=== PATIENT | male | born 1945 | race Caucasian/White ===

== ENCOUNTER 2019-08-17 23:17 | Observation (INO) ==
[2019-08-17] MEDS ORDERED: PIPERACILLIN/TAZOBACTAM 4.5 GM/120 ML BAG IV ONE (23:39)
[2019-08-17] MEDS ORDERED: PIPERACILL/TAZOBAC CONSULT ACTIVE PRN (23:39)
[2019-08-17] MEDS ORDERED: ONDANSETRON INJ 2 MG/ML 2 ML VIAL IV STA (23:40)
[2019-08-17] MEDS ORDERED: fentaNYL citrate 100 MCG/2 ML VIAL IV STA (23:40)
[2019-08-18 00:02] LABS: Basophils # (auto) 0.02 K/uL (0-0.2); Basophils % (auto) 0.2 %; Eosinophils # (auto) 0.29 K/uL (0-0.5); Eosinophils % (auto) 2.4 %; Hemoglobin 10.7 g/dL (14.0-18.0); Immature Granulocytes # (auto) 0.05 K/uL (0.00-0.02); Immature Granulocytes % (auto) 0.4 %; Lymphocytes # (auto) 1.41 K/uL (1.2-3.4); Lymphocytes % (auto) 11.9 %; Mean Corpuscular Hemoglobin 28.5 pg (25-34); Mean Corpuscular Hgb Conc 31.5 g/dL (32-36); Mean Corpuscular Volume 90.4 fL (80-100); Mean Platelet Volume 10.2 fL (7.4-10.4); Monocytes % (auto) 7.6 %; Neutrophils % (auto) 77.5 %; Platelet Count 134 K/uL (130-400); RDW Coefficient of Variation 14.9 % (11.5-14.5); RDW Standard Deviation 48.8 fL (36.4-46.3); Red Blood Count 3.76 M/uL (4.7-6.1); White Blood Count 11.87 K/uL (4.8-10.8)
[2019-08-18 00:18] LABS: Albumin Level 3.1 gm/dl (3.4-5.0); BUN Creatinine Ratio 18.1 (10-20); Calcium 8.1 mg/dl (8.5-10.1); Est GFR (African American) 22.9; Est GFR (Non-African American) 19.7; Potassium 4.7 mmol/L (3.5-5.1)
[2019-08-18 00:21] LABS: Albumin Globulin Ratio 0.9 (0.9-2); Bilirubin,Total 0.4 mg/dl (0.2-1); Globulin 3.4 gm/dl (2.5-4.0); Total Protein 6.5 gm/dl (6.4-8.2)
[2019-08-18] MEDS ORDERED: HYDROmorphone INJ 0.5 MG/0.5 ML SYR IV STA (01:09)
[2019-08-18 01:42] LABS: Appearance Urine Cloudy (Clear); Bacteria Urine Automated Negative (Negative); Bilirubin Urine Negative (Negative); Blood Urine 3+ (Negative); Color Urine Yellow; Epithelial Cell Urine Auto >30 /lpf (0-5); Glucose Urine UA Negative (Negative); Ketones Urine Negative (Negative); Leukocyte Esterase Urine Trace (Negative); Nitrite Urine Negative (Negative); Protein Urine 2+ (Negative); RBC Urine Automated >30 /hpf (0-4); Specific Gravity Urine 1.013 (1.000-1.030); Urobilinogen Urine Negative (Negative)
[2019-08-18 01:57] LABS: Amorphous Sediment Urine Present (None Prsent)
[2019-08-18 01:58] LABS: Cast Urine Automated 0 /lpf (0-5); Mucus Urine Present (None Prsent)
[2019-08-18] MEDS ORDERED: HydrALAZINE HCL 20 MG/ML VIAL IV STA (02:08)
[2019-08-18] MEDS: SODIUM CHLORIDE 0.9% 1000ML 1,000 ML IV SCH ×3 (02:35→22:38)
--- NOTE | 2019-08-18 03:49 | Emergency Department Note ---
History of Present Illness General Chief complaint: Urinary Symptoms Stated complaint: BLADDER SURGERY TODAY, WEAK, UNABLE TO URINATE Source: patient and family Mode of arrival: ambulatory Limitations: no limitations History of Present Illness Provider complaint: weak, urinary retention, bladder tumor resection today Onset (ago): day(s) 1 Maximum Pain Intensity: 6 This pt is a 73 yo male who presents to the ED with c/o weakness, abd pain, urinary difficulties, post bladder tumor resection today. states he was able to ambulate with minimal assist out of the surgery center. This evening the patient began to complain of some lower abdominal discomfort and became weak. He required a 2 person assist to ambulate to the bathroom. His states he was not able to pass urine. He has not urinated since leaving the surgery center. There has been no significant fever, headache, chest pain or shortness of breath. There is no vomiting or diarrhea. Patient's states he did do something similar several years ago and required several day stay at [facility]. Home Medications Home Medications Medication Instructions Recorded Confirmed Type escitalopram oxalate 20 mg tablet 20 mg PO QAM tab 10/25/18 08/18/19 History levothyroxine 100 mcg tablet 100 mcg PO QAM tab 10/25/18 08/18/19 History simvastatin 80 mg tablet 80 mg PO HS tab 10/25/18 08/18/19 History furosemide 40 mg tablet 40 mg PO DAILY tab 02/03/19 08/18/19 History PreserVision AREDS-2 1 tab PO BID 02/17/19 08/18/19 History aspirin [Aspir-81] 81 mg PO QAM 02/17/19 08/18/19 History cholecalciferol (vitamin D3) 2,000 unit PO QAM 02/17/19 08/18/19 History [Vitamin D3] metoprolol tartrate 25 mg tablet 25 mg PO BID 04/11/19 08/18/19 History hydralazine 10 mg PO TID 06/28/19 08/18/19 History multivitamin 1 tab PO DAILYBD 06/28/19 08/18/19 History nitroglycerin [Nitrolingual] See Rx Instructions .ROUTE 06/28/19 08/18/19 History .COMPLEX PRN gabapentin 100 mg capsule 100 mg PO BID 30 Days #60 cap 07/21/19 08/18/19 Rx ciprofloxacin HCl [Cipro] 500 mg PO Q12H #10 tab 08/17/19 08/18/19 Rx oxycodone-acetaminophen [Percocet] 1 tab PO Q8H PRN #7 tab 08/17/19 08/18/19 Rx amlodipine 5 mg PO DAILY 08/18/19 08/18/19 History Allergies Allergy/AdvReac Type Severity Reaction Status Date / Time No Known Allergies Allergy Verified 08/17/19 10:21 Past Med/Surg History Medical History Bladder cancer 03/02 CAD (coronary artery disease) s/p stents x4 total- (1995, 2009); CABG x 5 (10/20/2018) Dyslipidemia Essential tremor Essential tremor vs secondary to chronic steroids per 03/2019 neuro note;on beta mckay and gabapentin [place] neurology [place] [place] Glaucoma History of blood transfusion s/p CABG 10/2018 History of stroke remote incidental finding on imaging (years ago) Hypertension Hypothyroidism Inguinal hernia Kidney disease stage III- "going into stage IV" per Dr. Nuno BURSN Macular degeneration b/l with eye injections by Dr. Gilbert Osteoarthritis Peripheral neuropathy likely idiopathic/age related per neurology ([facility] [place] Peripheral vascular disease Polymyalgia rheumatica on chronic steroids Rotator cuff tear right Sleep apnea non-compliant CPAP Transient ischemic attack (TIA) 05/16/19- testing was negative for stroke at [facility], pt had slurred speech and left facial droop which resolved after a few hours. said it was a TIA that did not show up on scan. Did request records- dx'ed and admitted to [facility] with weakness, mild left facial droop, and ambulatory dysfunction- MRI showed no acute process. No mention of TIA Umbilical hernia Surgical History History of appendectomy History of biopsy of bladder with BCG treatments History of cardiac cath x2- 4 stents total (1995, 2009) History of cataract surgery R&L History of cholecystectomy History of colonoscopy History of endoscopy History of open heart surgery CABG x 5 (10/2018) History of vascular surgery bilateral lower extremities Family History Brother Lymphoma Arthritis COPD (chronic obstructive pulmonary disease) Diabetes Kidney disease Coronary heart disease Heart disease Sister Arthritis Diabetes Parkinson disease Mother , age 85 with a brain tumor. Heart disease Diabetes Father , age 59 of an CA. 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 and A total of 10 systems reviewed and were otherwise negative Physical Exam Vital Signs Vital Signs - 24 hr 08/17/19 23:19 08/17/19 23:34 08/18/19 00:30 Temperature 37.7 C H Temperature Source Oral Pulse Rate 64 67 Pulse Rate [Apical] Pulse Rate from SpO2 Sensor 67 Respiratory Rate 20 15 Respiratory Effort / Characteristics Non-Labored Spontaneous Respiratory Depth Normal Blood Pressure 179/78 H 168/71 H Blood Pressure [Left Arm] Blood Pressure Mean 111 96 Blood Pressure Mean [Left Arm] Pulse Oximetry 96 98 Oxygen Delivery Method Room Air Room Air Oxygen Flow Rate Sepsis Action Taken by Nursing No Action Required 08/18/19 01:09 08/18/19 01:12 08/18/19 01:31 Temperature 37.1 C Temperature Source Oral Pulse Rate 66 67 Pulse Rate [Apical] 66 Pulse Rate from SpO2 Sensor 66 67 Respiratory Rate 18 16 14 Respiratory Effort / Characteristics Respiratory Depth Blood Pressure 185/88 H 171/111 H Blood Pressure [Left Arm] 185/88 H Blood Pressure Mean 138 127 Blood Pressure Mean [Left Arm] 120 Pulse Oximetry 99 100 91 Oxygen Delivery Method Room Air Oxygen Flow Rate Sepsis Action Taken by Nursing 08/18/19 02:00 08/18/19 02:30 08/18/19 02:31 Temperature 37.3 C Temperature Source Oral Pulse Rate 70 75 74 Pulse Rate [Apical] Pulse Rate from SpO2 Sensor 75 Respiratory Rate 16 17 14 Respiratory Effort / Characteristics Respiratory Depth Blood Pressure 190/79 H 167/92 H Blood Pressure [Left Arm] Blood Pressure Mean 97 122 Blood Pressure Mean [Left Arm] Pulse Oximetry 90 97 97 Oxygen Delivery Method Nasal Cannula Oxygen Flow Rate 2 Sepsis Action Taken by Nursing 08/18/19 03:00 08/18/19 03:30 08/18/19 04:00 Temperature Temperature Source Pulse Rate 76 76 77 Pulse Rate [Apical] Pulse Rate from SpO2 Sensor Respiratory Rate 18 18 16 Respiratory Effort / Characteristics Respiratory Depth Blood Pressure 178/66 H 169/69 H 170/73 H Blood Pressure [Left Arm] Blood Pressure Mean 96 105 96 Blood Pressure Mean [Left Arm] Pulse Oximetry 99 96 96 Oxygen Delivery Method Nasal Cannula Nasal Cannula Nasal Cannula Oxygen Flow Rate 2 2 2 Sepsis Action Taken by Nursing Vital signs reviewed. General: Chronically ill-appearing 73-year-old male, in no significant distress. HEENT: No scleral icterus, PERRLA, neck supple. Atraumatic. Cardiovascular: Regular rate and rhythm, no extra sounds. Pulmonary: Clear to auscultation bilaterally, normal work of breathing. Abdomen: Soft, nontender, nondistended, positive bowel sounds. Musculoskeletal: Atraumatic, no peripheral edema. Neurologic: Patient awake, appears to be in some discomfort. Speech is clear but patient is somnolent. Skin: Warm, dry, no rash Course Administered Medications Sodium Chloride (Nss 1000ml) 1,000 mls @ 100 mls/hr IV .Q10H GASTON Stop: 09/17/19 02:32 Last Infusion: 08/18/19 05:26 Dose: 100 mls/hr Documented by: [id number] Infusion: 08/18/19 05:25 Dose: 0 mls/hr Documented by: [id number] Infusion: 08/18/19 04:43 Dose: 0 mls/hr Documented by: [id number] Admin: 08/18/19 02:35 Dose: 100 mls/hr Documented by: [id number] Levothyroxine Sodium (Synthroid) 100 mcg PO DAILYBB GASTON Stop: 09/17/19 06:29 Last Admin: 08/18/19 05:45 Dose: Not Given Documented by: [id number] Discontinued Medications Fentanyl Citrate (Fentanyl Citrate) 50 mcg IV NOW STA Stop: 08/17/19 23:41 Last Admin: 08/18/19 00:07 Dose: 50 mcg Documented by: [id number] Hydralazine HCl (Hydralazine Hcl) 10 mg IV NOW STA Stop: 08/18/19 02:09 Last Admin: 08/18/19 02:11 Dose: 10 mg Documented by: [id number] Hydromorphone HCl (Dilaudid) 0.5 mg IV NOW STA Stop: 08/18/19 01:10 Last Admin: 08/18/19 01:15 Dose: 0.5 mg Documented by: [id number] Piperacillin Sod/Tazobactam Sod (Zosyn) 4.5 gm in 120 mls @ 240 mls/hr IV NOW ONE Stop: 08/18/19 00:08 Last Infusion: 08/18/19 00:38 Dose: 0 mls/hr Documented by: [id number] Admin: 08/18/19 00:07 Dose: 240 mls/hr Documented by: [id number] Ondansetron HCl (Zofran) 4 mg IV NOW STA Stop: 08/17/19 23:41 Last Admin: 08/18/19 00:07 Dose: 4 mg Documented by: [id number] Medical Decision Making Differential Diagnosis The differential diagnosis of this patient's presentation includes bladder perforation, bowel perforation, UTI, renal obstruction, dehydration, infectious etiology, acute coronary syndrome, medication intolerance Medical Records Attestation: I reviewed the patient's medical records. Home Medications Current Medication List: was personally reviewed by me Laboratory Data Attestation: I reviewed the patient's lab results. Result diagrams: 08/17/19 23:52 08/17/19 23:52 Lab Results 08/17/19 08/17/19 08/18/19 Range/Units 23:52 23:52 00:00 WBC 11.87 H (4.8-10.8) K/uL RBC 3.76 L (4.7-6.1) M/uL Hgb 10.7 L (14.0-18.0) g/dL Hct 34.0 L (42-52) % MCV 90.4 (80-100) fL MCH 28.5 (25-34) pg MCHC 31.5 L (32-36) g/dL RDW Std Deviation 48.8 H (36.4-46.3) fL RDW Coeff of Maria L 14.9 H (11.5-14.5) % Plt Count 134 (130-400) K/uL MPV 10.2 (7.4-10.4) fL Immature Gran % (Auto) 0.4 % Neut % (Auto) 77.5 % Lymph % (Auto) 11.9 % [place] % (Auto) 7.6 % Eos % (Auto) 2.4 % Baso % (Auto) 0.2 % Immature Gran # (Auto) 0.05 H (0.00-0.02) K/uL Neut # (Auto) 9.20 H (1.4-6.5) K/uL Lymph # (Auto) 1.41 (1.2-3.4) K/uL [place] # (Auto) 0.90 H (0.11-0.59) K/uL Eos # (Auto) 0.29 (0-0.5) K/uL Baso # (Auto) 0.02 (0-0.2) K/uL Sodium 138 (136-145) mmol/L Potassium 4.7 (3.5-5.1) mmol/L Chloride 107 (98-107) mmol/L Carbon Dioxide 22 (21-32) mmol/L Anion Gap 9.0 (3-11) BUN 53 H (7-18) mg/dl Creatinine 2.96 H (0.6-1.4) mg/dl Est Cr Clr Drug Dosing 21.0 ml/min Est GFR ( Amer) 22.9 Est GFR (Non-Af Amer) 19.7 BUN/Creatinine Ratio 18.1 (10-20) Glucose 92 (70-99) mg/dl Lactate 1.0 (0.4-2.0) mmol/L Calcium 8.1 L (8.5-10.1) mg/dl Total Bilirubin 0.4 (0.2-1) mg/dl AST 14 L (15-37) U/L ALT 22 (12-78) U/L Alkaline Phosphatase 52 (45-117) U/L Total Protein 6.5 (6.4-8.2) gm/dl Albumin 3.1 L (3.4-5.0) gm/dl Globulin 3.4 (2.5-4.0) gm/dl Albumin/Globulin Ratio 0.9 (0.9-2) Urine Color Urine Appearance (Clear) Urine pH (4.5-7.5) Ur Specific Reading (1.000-1.030) Urine Protein (Negative) Urine Glucose (UA) (Negative) Urine Ketones (Negative) Urine Blood (Negative) Urine Nitrite (Negative) Urine Bilirubin (Negative) Urine Urobilinogen (Negative) Ur Leukocyte Esterase (Negative) Urine WBC (Auto) (0-5) /hpf Urine RBC (Auto) (0-4) /hpf U Hyaline Cast (Auto) (0-5) /lpf U Epithel Cells (Auto) (0-5) /lpf Urine Bacteria (Auto) (Negative) Ur Renal Epithelial Cell Amorphous Sediment (None Prsent) Urine Mucus (None Prsent) 08/18/19 Range/Units 01:20 WBC (4.8-10.8) K/uL RBC (4.7-6.1) M/uL Hgb (14.0-18.0) g/dL Hct (42-52) % MCV (80-100) fL MCH (25-34) pg MCHC (32-36) g/dL RDW Std Deviation (36.4-46.3) fL RDW Coeff of Maria L (11.5-14.5) % Plt Count (130-400) K/uL MPV (7.4-10.4) fL Immature Gran % (Auto) % Neut % (Auto) % Lymph % (Auto) % [place] % (Auto) % Eos % (Auto) % Baso % (Auto) % Immature Gran # (Auto) (0.00-0.02) K/uL Neut # (Auto) (1.4-6.5) K/uL Lymph # (Auto) (1.2-3.4) K/uL [place] # (Auto) (0.11-0.59) K/uL Eos # (Auto) (0-0.5) K/uL Baso # (Auto) (0-0.2) K/uL Sodium (136-145) mmol/L Potassium (3.5-5.1) mmol/L Chloride (98-107) mmol/L Carbon Dioxide (21-32) mmol/L Anion Gap (3-11) BUN (7-18) mg/dl Creatinine (0.6-1.4) mg/dl Est Cr Clr Drug Dosing ml/min Est GFR ( Amer) Est GFR (Non-Af Amer) BUN/Creatinine Ratio (10-20) Glucose (70-99) mg/dl Lactate (0.4-2.0) mmol/L Calcium (8.5-10.1) mg/dl Total Bilirubin (0.2-1) mg/dl AST (15-37) U/L ALT (12-78) U/L Alkaline Phosphatase (45-117) U/L Total Protein (6.4-8.2) gm/dl Albumin (3.4-5.0) gm/dl Globulin (2.5-4.0) gm/dl Albumin/Globulin Ratio (0.9-2) Urine Color Yellow Urine Appearance Cloudy A (Clear) Urine pH 5.0 (4.5-7.5) Ur Specific Reading 1.013 (1.000-1.030) Urine Protein 2+ H (Negative) Urine Glucose (UA) Negative (Negative) Urine Ketones Negative (Negative) Urine Blood 3+ H (Negative) Urine Nitrite Negative (Negative) Urine Bilirubin Negative (Negative) Urine Urobilinogen Negative (Negative) Ur Leukocyte Esterase Trace H (Negative) Urine WBC (Auto) 1-5 (0-5) /hpf Urine RBC (Auto) >30 H (0-4) /hpf U Hyaline Cast (Auto) 0 (0-5) /lpf U Epithel Cells (Auto) >30 H (0-5) /lpf Urine Bacteria (Auto) Negative (Negative) Ur Renal Epithelial Cell Not Reportable Amorphous Sediment Present A (None Prsent) Urine Mucus Present A (None Prsent) Imaging Data Radiologist's Impression: CT abdomen and pelvis without contrast: Air in the bladder that may be from recent instrumentation or surgery. Fluid in the pre- vesicular spacelower abdomen and pelvis. Cannot exclude injury or rupture to the bladder. Some bladder wall thickening and probably diverticulum. Nonobstructive bowel gas pattern. Appendix not identified. Duodenal divertic ulum. Colonic diverticuli without diverticulitis. Cholecystectomy. Renal cyst. Likely combination of renal vascular calcifications and renal calculi. No obstructing ureteral stones. Fat-containing ventral hernia. Subcutaneous edema in the back. Mild consolidative atelectasis of the lung bases. Cardiomegaly and surgical changes. Radiologist April Cervantes MD Blood Pressure Blood Pressure Findings: Elevated blood pressure Blood Pressure Disposition: further management by hospitalist RAKEL Stone This patient was evaluated and appeared to be in no significant distress. An order for cardiac monitoring was placed and the patient was found to be in a sinus rhythm at 78 bpm. IV access was obtained and laboratory work was drawn. Patient was hydrated with normal saline solution at 100 mL's per hour. Patient was given 50 mcg of IV fentanyl with initial pain control. Bladder scan was performed and reveals no significant urine in the bladder. Given the amount of tenderness the patient had, CT scan of the abdomen pelvis was performed and reveals some infiltrative change around the bladder and the possibility of small rupture. Patient does not have significant evidence of rupture on exam however did request additional pain medication. He was given hydromorphone 0.[address], there was urine in the bladder and a Almanza catheter was placed. Patient is draining a blood tinged urine. Laboratory work reveals a mild leukocytosis at 11.87. Creatinine is noted to be 2.96 which is slightly higher than the patient's baseline. Patient was given 4.5 g of IV Zosyn for empiric coverage. Case was discussed with Dr. Gonsales of urology who agrees with observation admission with internal medicine and urologic consultation. Patient's was notified and agreed with the plan. Impression & Plan Generalized muscle weakness, Acute urinary retention, History of transurethral destruction of bladder lesion Discharge Plan Visit Data *Final* Discharge Date/Time: 08/18/19 04:42 Chief Complaint: Urinary Symptoms Stated Complaint: BLADDER SURGERY TODAY, WEAK, UNABLE TO URINATE ED Provider: Darleen Layton Discharge Problem: Generalized muscle weakness, Acute urinary retention, History of transurethral destruction of bladder lesion Patient Disposition: Admitted As Inpatient Discharge Instructions Interventions: ED Discharge Assessment Last Done: 08/18/19 04:42
--- NOTE | 2019-08-18 03:58 | History & Physical Report ---
Date of Service August 18, 2019 Assessment & Plan (1) Unable to void: Tiago Johnson is a 73-year-old male with a past medical history of coronary artery disease status post surgical intervention, peripheral vascular disease with history of angioplasty and stent, PMR, CKD, and bladder cancer who underwent resection of a 3.9 cm bladder mass on 08/17/2019 who presents with increasing weakness and inability to void after surgery. Inability to void post bladder cancer resection Discussed with urology CTabdomen initially concerning for potential bladder perforation, films reviewed with urology and perforation felt to be unlikely Almanza placed, draining clear blood-tinged urine Patient in no acute distress Urology consulted, will see in the morning No signs of acute infection, defer antibiotic treatment at this time JOE on CKD Suspect post renal in the setting of inability to void, potentially volume depleted following surgery No signs of acute bleeding, urine blood-tinged but without shayla hematuria Creatinine elevated to 2.9 NSS@100 cc/h, BMP daily Hold nephrotoxins Weakness Similar to episodes the patient has had in the past of whole body weakness without focal deficit Patient with a past episode concerning for stroke with some effect on gait but minimal deficit on strength Patient may experience exacerbation of residual features with acute stress/illness Follow clinically History of CAD Continue aspirin daily Continue metoprolol 25 mg daily Continue simvastatin 80 mg p.o. nightly Hypertension Continue amlodipine daily Continue metoprolol as above Aspirin as above Hypothyroidism Continue Synthroid 100 mcg daily Depression/anxiety Continue escitalopram 20 mg every morning DVT prophylaxis: SCDs Diet: N.p.o. until seen by urology CODE STATUS: Full code Disposition: Medical surgical (2) Bladder cancer: (3) CKD (chronic kidney disease): (4) Peripheral neuropathy: (5) Polymyalgia rheumatica: History of Present Illness Chief Complaint: Weakness, anuria Primary Care Provider: Mane Mosquera Tiago Johnson is a 73-year-old male with a past medical history of coronary artery disease status post surgical intervention, peripheral vascular disease with history of angioplasty and stent, PMR, CKD, and bladder cancer who underwent resection of a 3.9 cm bladder mass on 08/17/2019 who presents with increasing weakness and inability to void after surgery. Zach is seen at the bedside with his . He is very somnolent after receiving pain medication, but arouses easily to voice and answers questions appropriately before falling back asleep. He and his report that he felt mostly well after surgery and prefer to be discharged home, but were told that if he was not able to void within several hours to return for reevaluation. He was not able to void by 10 PM so they presented back to the emergency department. He and his also note that he has had intermittent episodes in the past of whole body weakness without focal weakness, and although he was able to walk without difficulty and had no problems with ambulation at time of discharge became increasingly weak and was not able to ambulate at home. He denies fever, chills, sweats and abdominal pain. Denies focal weakness. No chest pain, chest pressure, or shortness of breath. CTabdomen was potentially concerning for perforation on initial stat rad read, films were reviewed between ED provider and urology. It was felt that there was no perforation, and patient was safe to be admitted for observation until he could be seen by urology. A Almanza catheter was placed by ED provider which drained clear, blood-tinged urine without clots. Medical history: Reviewed Surgical history: Reviewed Allergies: Reviewed CODE STATUS: Full code, discussed with patient and Social history: Former tobacco use, quit greater than 1 year ago. Denies regular alcohol use and recreational drug use. Lives at home with his . Allergies Allergy/AdvReac Type Severity Reaction Status Date / Time No Known Allergies Allergy Verified 08/17/19 10:21 Home Medications Home Medications Medication Instructions Recorded Confirmed Type escitalopram oxalate 20 mg tablet 20 mg PO QAM tab 10/25/18 08/18/19 History levothyroxine 100 mcg tablet 100 mcg PO QAM tab 10/25/18 08/18/19 History simvastatin 80 mg tablet 80 mg PO HS tab 10/25/18 08/18/19 History furosemide 40 mg tablet 40 mg PO DAILY tab 02/03/19 08/18/19 History PreserVision AREDS-2 1 tab PO BID 02/17/19 08/18/19 History aspirin [Aspir-81] 81 mg PO QAM 02/17/19 08/18/19 History cholecalciferol (vitamin D3) 2,000 unit PO QAM 02/17/19 08/18/19 History [Vitamin D3] metoprolol tartrate 25 mg tablet 25 mg PO BID 04/11/19 08/18/19 History hydralazine 10 mg PO TID 06/28/19 08/18/19 History multivitamin 1 tab PO DAILYBD 06/28/19 08/18/19 History nitroglycerin [Nitrolingual] See Rx Instructions .ROUTE 06/28/19 08/18/19 History .COMPLEX PRN gabapentin 100 mg capsule 100 mg PO BID 30 Days #60 cap 07/21/19 08/18/19 Rx ciprofloxacin HCl [Cipro] 500 mg PO Q12H #10 tab 08/17/19 08/18/19 Rx oxycodone-acetaminophen [Percocet] 1 tab PO Q8H PRN #7 tab 08/17/19 08/18/19 Rx amlodipine 5 mg PO DAILY 08/18/19 08/18/19 History Past Med/Surg History Medical History Bladder cancer 03/02 CAD (coronary artery disease) s/p stents x4 total- (1995, 2009); CABG x 5 (10/20/2018) Dyslipidemia Essential tremor Essential tremor vs secondary to chronic steroids per 03/2019 neuro note;on beta mckay and gabapentin per neurology [place] [place] Glaucoma History of blood transfusion s/p CABG 10/2018 History of stroke remote incidental finding on imaging (years ago) Hypertension Hypothyroidism Inguinal hernia Kidney disease stage III- "going into stage IV" per Dr. Nuno BURNS Macular degeneration b/l with eye injections by Dr. Gilbert Osteoarthritis Peripheral neuropathy likely idiopathic/age related per neurology [place] [place] Peripheral vascular disease Polymyalgia rheumatica on chronic steroids Rotator cuff tear right Sleep apnea non-compliant CPAP Transient ischemic attack (TIA) 05/16/19- testing was negative for stroke at [facility], pt had slurred speech and left facial droop which resolved after a few hours. said it was a TIA that did not show up on scan. Did request records- dx'ed and admitted to [facility] with weakness, mild left facial droop, and ambulatory dysfunction- MRI showed no acute process. No mention of TIA Umbilical hernia Surgical History History of appendectomy History of biopsy of bladder with BCG treatments History of cardiac cath x2- 4 stents total (1995, 2009) History of cataract surgery R&L History of cholecystectomy History of colonoscopy History of endoscopy History of open heart surgery CABG x 5 (10/2018) History of vascular surgery bilateral lower extremities Family History Brother Lymphoma Arthritis COPD (chronic obstructive pulmonary disease) Diabetes Kidney disease Coronary heart disease Heart disease Sister Arthritis Diabetes Parkinson disease Mother , age 85 with a brain tumor. Heart disease Diabetes Father , age 59 of an [place]. 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 Safe at Home: Yes Smoking Status: Former smoker Tobacco Type: cigarettes ; Number of Years Since Quit: 23 ; Second Hand Exposure: No ; Hx Alcohol Use: No Hx Substance Use: No Review of Systems Review of Systems: Constitutional: Denies fever, chills, malaise Eyes: Denies vision change ENT: Denies ear pain, sore throat, sinus pain Cardiovascular: Denies Chest pain, chest pressure, palpitations Respiratory: Denies shortness of breath, cough, sputum production, difficulty breathing Gastrointestinal: Denies abdominal pain, nausea, vomiting, constipation, diarrhea Genitourinary: See HPI Musculoskeletal: Endorses global weakness without focal weakness, denies muscle/joint aches Integumentary:Denies acute rash, lesions, bruising Neurological: Denies acute headache, numbness, tingling, focal weakness Physical Exam Physical Exam: General: Somnolent, arouses easily to voice. Answers questions appropriately. NAD. Cooperative. HEENT: Atraumatic, normocephalic. Pupils equal and responsive to light and accommodation. Pupils mildly constricted at approximately 2 mm after receiving pain medication. Pulm: CTAB A&P. -wheezes, -rales, -rhonchi. Symmetrical chest rise. No increase work of breathing. No respiratory distress. Cardiac: RRR, -mrg. Radial pulses intact and symmetrical. Abdominal: Nontender, nondistended, soft. BS present. Extremities: Trace bilateral lower extremity edema. Sensation intact to soft touch in fingers and feet bilaterally. Straightedge Worker strength intact bilaterally. Ankle dorsiflexion/plantar flexion intact bilaterally. Results & Data Results & Data ([facility]) Vital Signs (Past 12 Hours) Vital Signs Temp Pulse Pulse Resp BP BP Pulse Ox 08/18/19 03:30 76 18 169/69 H 96 08/18/19 03:00 76 18 178/66 H 99 08/18/19 02:31 37.3 C 74 14 97 08/18/19 02:30 75 17 167/92 H 97 08/18/19 02:00 70 16 190/79 H 90 08/18/19 01:31 67 14 171/111 H 91 08/18/19 01:12 37.1 C 66 16 185/88 H 100 08/18/19 01:09 66 18 185/88 H 99 08/18/19 00:30 67 15 168/71 H 98 08/17/19 23:19 37.7 C H 64 20 179/78 H 96 Supervising Physician Co-Signing Physician Notes Patient seen and examined, chart reviewed, case discussed with Dr. Fofana and I agree with his assessment and plan as above Resident Activity Tracking Resident Involvement: Resident Care Provided Care Provided: Adult [facility] Medicine
--- NOTE | 2019-08-18 04:56 | Billing Data ---
Date of Service August 18, 2019 Coding Level of Care Code 37031 OBS Care - Level 3
[2019-08-18] MEDS ORDERED: ONDANSETRON INJ 2 MG/ML 2 ML VIAL IV PRN (05:10)
[2019-08-18] MEDS: LEVOTHYROXINE SODIUM 100 MCG TABLET PO SCH (05:45)
--- NOTE | 2019-08-18 07:53 | CT Scan Report ---
ABDOMEN AND PELVIS CT WITHOUT CONTRAST CT DOSE: 711.64 mGy.cm HISTORY: ? perf post bladder resection TECHNIQUE: Multiaxial CT images of the abdomen and pelvis were performed without contrast. A dose lo wering technique was utilized adhering to the principles of ALARA. COMPARISON STUDY: Abdomen and pelvis CT 02/22/2019. FINDINGS: Small focus of gas within the bladder. There is fluid within the prevesical space/lower abd omen and pelvis. There is mild bladder wall thickening. Therefore, this fluid could represent urine i n the setting of a bladder perforation. Small fat-containing right inguinal hernia. The prostate glan d is normal in size. Colonic diverticulosis. No evidence for diverticulitis. Suboptimal evaluation fo r bowel pathology due to the lack of intravenous and oral contrast. However, there is no definite bow el wall thickening or obstruction. Tiny fat-containing umbilical hernia. Calcified plaque within the normal caliber abdominal aorta. No retroperitoneal lymphadenopathy. Cholecystectomy. Bibasilar linear densities favor subsegmental atelectasis. No pneumoperitoneum. No pneumatosis. No suspicious lytic o r blastic osseous lesions. Healing left-sided rib fractures. There are poststernotomy changes. The un enhanced liver, spleen, adrenal glands, and pancreas are unremarkable. Calcifications within the kidn eys appear to be vascular. No hydronephrosis. Bilateral renal hypodense lesions are again noted. Thes e are incompletely characters on this noncontrast study but favor cysts. IMPRESSION: 1. Small to moderate amount of fluid within the prevesical space/lower abdomen and pelvis with mild b ladder wall thickening. Therefore, this could represent urine in the setting of a bladder perforation /injury. 2. The left-sided bladder mass is no longer visualized and has likely been resected in the interval. 3. Small focus of gas within the bladder. This could be due to recent instrumentation/surgery. 4. Healing left-sided rib fractures. 5. Additional findings as described above. ACT 112: Negative or not required by law. Electronically signed by: Froilan Woo M.D. 08/18/2019 7:52 AM
[2019-08-18] MEDS: ESCITALOPRAM OXALATE 20 MG TAB PO SCH (09:18)
[2019-08-18] MEDS: AMLODIPINE BESYLATE 5 MG TAB PO SCH (09:18)
[2019-08-18] MEDS: ASPIRIN 81 MG ECTAB PO SCH (09:18)
[2019-08-18] MEDS: METOPROLOL TARTRATE 25 MG TAB PO SCH ×2 (09:19→21:41)
[2019-08-18] MEDS: HydrALAZINE 10 MG TAB PO SCH ×3 (09:19→21:40)
[2019-08-18] MEDS: GABAPENTIN 100 MG CAP PO SCH ×2 (09:19→21:41)
--- NOTE | 2019-08-18 12:36 | Urology Consultation ---
Date of Consultation August 18, 2019 Assessment & Plan (1) Unable to void: Patient tolerating catheter without major changes or issues. Patient did have considerable irritation on CT scan and possibility of bladder perforation was discussed. On review of imaging likely changes secondary to recent TURBT with mitomycin instillation. No considerable fluid collections noted no peritoneal signs of issues. Patient is dealing with an JOE likely secondary to the retention. Has been tolerating catheter. Agree with hydration as well as supportive care. Patient undergoing work-up with medicine. We will continue to monitor. Patient's pathology will likely not be back for a few days. Patient will likely need to maintain catheter for next 5 to 7 days. Will monitor for other changes or issues. We will plan to have patient return to office to discuss pathology and to have catheter removal at that time. Patient complicated medical and surgical history was reviewed interpreted by myself. All vitals were reviewed. (2) Bladder cancer: (3) Acute urinary retention: (4) Generalized muscle weakness: History of Present Illness Attending Physician: Matty George History of Present Illness Consult for patient who was admitted in the evening after a TURBT with a known history of bladder cancer. Patient was having issues voiding and was found to be increasing in weakness and fatigue. Patient was admitted due to severe fatigue and weakness. At time was found to be in retention and a catheter was placed with some light red-tinged urine. Patient is tolerating catheter currently. No other major problems or changes. Patient did have a considerable amount of inflammation around bladder likely secondary to recent TURBT. Patient also had mitomycin instillation. Is not having severe bothersome discomfort but does notice some mild irritation from catheter. Also patient has mild to moderate discomfort in pelvis and groin going to back and side in waves. Is dealing with acute illness due to weakness. Has been deconditioned from this. Has decreased mobility significantly with acute issues. Patient has not had complete return to normal bowel function. Has had some minor urinary issues in the past. Denies bleeding. No severe nausea or vomiting. Currently no fevers. Allergies Allergy/AdvReac Type Severity Reaction Status Date / Time No Known Allergies Allergy Verified 08/17/19 10:21 Home Medications Home Medications Medication Instructions Recorded Confirmed Type escitalopram oxalate 20 mg tablet 20 mg PO QAM tab 10/25/18 08/18/19 History levothyroxine 100 mcg tablet 100 mcg PO QAM tab 10/25/18 08/18/19 History simvastatin 80 mg tablet 80 mg PO HS tab 10/25/18 08/18/19 History furosemide 40 mg tablet 40 mg PO DAILY tab 02/03/19 08/18/19 History PreserVision AREDS-2 1 tab PO BID 02/17/19 08/18/19 History aspirin [Aspir-81] 81 mg PO QAM 02/17/19 08/18/19 History cholecalciferol (vitamin D3) 2,000 unit PO QAM 02/17/19 08/18/19 History [Vitamin D3] metoprolol tartrate 25 mg tablet 25 mg PO BID 04/11/19 08/18/19 History hydralazine 10 mg PO TID 06/28/19 08/18/19 History multivitamin 1 tab PO DAILYBD 06/28/19 08/18/19 History nitroglycerin [Nitrolingual] See Rx Instructions .ROUTE 06/28/19 08/18/19 History .COMPLEX PRN gabapentin 100 mg capsule 100 mg PO BID 30 Days #60 cap 07/21/19 08/18/19 Rx ciprofloxacin HCl [Cipro] 500 mg PO Q12H #10 tab 08/17/19 08/18/19 Rx oxycodone-acetaminophen [Percocet] 1 tab PO Q8H PRN #7 tab 08/17/19 08/18/19 Rx amlodipine 5 mg PO DAILY 08/18/19 08/18/19 History Patient History Medical History Bladder cancer 03/02 CAD (coronary artery disease) s/p stents x4 total- (1995, 2009); CABG x 5 (10/20/2018) Dyslipidemia Essential tremor Essential tremor vs secondary to chronic steroids per 03/2019 neuro note;on beta mckay and gabapentin per neurology ([facility] [place] [facility]) Glaucoma History of blood transfusion s/p CABG 10/2018 History of stroke remote incidental finding on imaging (years ago) Hypertension Hypothyroidism Inguinal hernia Kidney disease stage III- "going into stage IV" per Dr. Nuno BURNS Macular degeneration b/l with eye injections by Dr. Gilbert Osteoarthritis Peripheral neuropathy likely idiopathic/age related per neurology ([facility] [place] [facility]) Peripheral vascular disease Polymyalgia rheumatica on chronic steroids Rotator cuff tear right Sleep apnea non-compliant CPAP Transient ischemic attack (TIA) 05/16/19- testing was negative for stroke at [facility], pt had slurred speech and left facial droop which resolved after a few hours. said it was a TIA that did not show up on scan. Did request records- dx'ed and admitted to [facility] with weakness, mild left facial droop, and ambulatory dysfunction- MRI showed no acute process. No mention of TIA Umbilical hernia Surgical History History of appendectomy History of biopsy of bladder with BCG treatments History of cardiac cath x2- 4 stents total (1995, 2009) History of cataract surgery R&L History of cholecystectomy History of colonoscopy History of endoscopy History of open heart surgery CABG x 5 (10/2018) History of vascular surgery bilateral lower extremities Family History Brother Lymphoma Arthritis COPD (chronic obstructive pulmonary disease) Diabetes Kidney disease Coronary heart disease Heart disease Sister Arthritis Diabetes Parkinson disease Mother , age 85 with a brain tumor. Heart disease Diabetes Father , age 59 of an [place]. 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 Advanced age. S ignificant weakness worse than baseline. HEENT: Normocephalic Atraumatic. Inspection normal. Cranial Nerves 2-12 Grossly intact. Nares are clear. Neck is supple. Normal inspection of face. Normal inspection of neck. Neurologic: No deficits on inspection. Baseline for motor function and sensory. Psychologic: Normal affect. Respiratory: Nonlabored. No use of accessory muscles. No tachypnea or dyspnea. Cardiovascular: No tachycardia Skin: [place] and Dry. No rashes or visible lesions. Extremities: Moving without issues. No motor deficits on inspection Lymphatics: No edema Abdomen: Soft Non-distended. No acites. No rebound or guarding. Results & Data Vital Signs (Past 12 Hours) Vital Signs Temp Pulse Pulse Pulse Resp BP BP 08/18/19 07:21 36.8 C 81 19 180/80 H 08/18/19 05:03 36.9 C 76 20 08/18/19 04:42 37.0 C 08/18/19 04:30 75 16 166/69 H 08/18/19 04:00 77 16 170/73 H 08/18/19 03:30 76 18 169/69 H 08/18/19 03:00 76 18 178/66 H 08/18/19 02:31 37.3 C 74 14 08/18/19 02:30 75 17 167/92 H 08/18/19 02:00 70 16 190/79 H 08/18/19 01:31 67 14 171/111 H 08/18/19 01:12 37.1 C 66 16 185/88 H 08/18/19 01:09 66 18 185/88 H BP Pulse Ox 08/18/19 07:21 98 08/18/19 05:03 171/74 H 97 08/18/19 04:42 08/18/19 04:30 98 08/18/19 04:00 96 08/18/19 03:30 96 08/18/19 03:00 99 08/18/19 02:31 97 08/18/19 02:30 97 08/18/19 02:00 90 08/18/19 01:31 91 08/18/19 01:12 100 08/18/19 01:09 99 PG Care Time/CCT Total # of Minutes Spent Total Time Spent with Patient: Total time spent is greater than 50% in coordination of care (as documented) at patient's floor/unit and/or counseling patient: Coding Level of Care Code 10119 Inpt Consult Level 5 Diagnoses Unable to void R33.9 Bladder cancer C67.9 Acute urinary retention R33.8 Generalized muscle weakness M62.81
[2019-08-18] MEDS: MULTIVITAMIN TAB PO SCH (16:17)
[2019-08-18 18:52] LABS: Hematocrit (blood only) 35.1 % (42-52); Hemoglobin 10.3 g/dL (14.0-18.0); Mean Corpuscular Hgb Conc 29.3 g/dL (32-36); Mean Corpuscular Volume 92.1 fL (80-100); Mean Platelet Volume 10.1 fL (7.4-10.4); Platelet Count 132 K/uL (130-400); RDW Coefficient of Variation 15.2 % (11.5-14.5); RDW Standard Deviation 51.7 fL (36.4-46.3); Red Blood Count 3.81 M/uL (4.7-6.1); White Blood Count 12.95 K/uL (4.8-10.8)
[2019-08-18 19:09] LABS: BUN Creatinine Ratio 17.6 (10-20); Calcium 8.6 mg/dl (8.5-10.1); Est GFR (African American) 21.6; Est GFR (Non-African American) 18.7; Potassium 5.1 mmol/L (3.5-5.1)
[2019-08-18 19:55] LABS: Base Excess VBG -2.3 mEq/L; Oxygen Saturation VBG 74.2 %; pH VBG 7.34 (7.36-7.41)
--- NOTE | 2019-08-18 20:18 | XRay Report ---
XR knee LT 1 or 2V routine CLINICAL HISTORY: knee pain COMPARISON: None. DISCUSSION: There are moderate osteoarthritic changes. There is superficial femoral artery vascular s tent. There are no acute fractures. There is a small joint effusion. IMPRESSION: 1. No acute fractures 2. Moderate osteoarthritic change 3. Small joint effusion ACT 112: Negative or not required by law. Electronically signed by: Eligio Salgado M.D. 08/18/2019 8:17 PM
--- NOTE | 2019-08-18 20:19 | XRay Report ---
XR knee RT 1 or 2V routine CLINICAL HISTORY: knee pain COMPARISON: None. DISCUSSION: No acute fractures or dislocations are visualized. There are vascular calcifications. The re is a superficial femoral artery stent. There is a trace joint effusion. The joint spaces appear re latively well preserved on these nonweightbearing views. IMPRESSION: 1. No acute fractures. 2. Trace joint effusion ACT 112: Negative or not required by law. Electronically signed by: Eligio Salgado M.D. 08/18/2019 8:18 PM
[2019-08-18] MEDS: SIMVASTATIN 80 MG TAB PO SCH (21:42)
[2019-08-18] MEDS: ACETAMINOPHEN 325 MG TAB PO PRN (21:44)
[2019-08-19] MEDS: LEVOTHYROXINE SODIUM 100 MCG TABLET PO SCH (05:51)
[2019-08-19 06:56] LABS: BUN Creatinine Ratio 18.4 (10-20); Calcium 8.2 mg/dl (8.5-10.1); Creatinine Clr Calc Pharmacy 21.7 ml/min; Est GFR (African American) 23.8; Est GFR (Non-African American) 20.6; Potassium 4.6 mmol/L (3.5-5.1)
[2019-08-19] MEDS: SODIUM CHLORIDE 0.9% 1000ML 1,000 ML IV SCH ×2 (09:18→19:12)
[2019-08-19] MEDS: HydrALAZINE 10 MG TAB PO SCH ×3 (09:22→20:48)
[2019-08-19] MEDS: METOPROLOL TARTRATE 25 MG TAB PO SCH ×2 (09:22→20:48)
[2019-08-19] MEDS: ASPIRIN 81 MG ECTAB PO SCH (09:22)
[2019-08-19] MEDS: GABAPENTIN 100 MG CAP PO SCH ×2 (09:22→20:48)
[2019-08-19] MEDS: AMLODIPINE BESYLATE 5 MG TAB PO SCH (09:23)
[2019-08-19] MEDS: ESCITALOPRAM OXALATE 20 MG TAB PO SCH (09:23)
[2019-08-19 09:25] LABS: Basophils # (auto) 0.03 K/uL (0-0.2); Basophils % (auto) 0.2 %; Eosinophils # (auto) 0.26 K/uL (0-0.5); Hemoglobin 9.7 g/dL (14.0-18.0); Immature Granulocytes # (auto) 0.03 K/uL (0.00-0.02); Immature Granulocytes % (auto) 0.2 %; Lymphocytes # (auto) 1.04 K/uL (1.2-3.4); Lymphocytes % (auto) 7.9 %; Mean Corpuscular Hemoglobin 28.8 pg (25-34); Mean Corpuscular Hgb Conc 31.3 g/dL (32-36); Mean Platelet Volume 9.7 fL (7.4-10.4); Monocytes # (auto) 1.02 K/uL (0.11-0.59); Monocytes % (auto) 7.8 %; Neutrophils # (auto) 10.77 K/uL (1.4-6.5); Neutrophils % (auto) 81.9 %; Platelet Count 114 K/uL (130-400); RDW Standard Deviation 51.2 fL (36.4-46.3); Red Blood Count 3.37 M/uL (4.7-6.1); White Blood Count 13.15 K/uL (4.8-10.8)
[2019-08-19] MEDS: ACETAMINOPHEN 325 MG TAB PO PRN ×2 (11:28→20:47)
[2019-08-19] MEDS: MULTIVITAMIN TAB PO SCH (15:30)
[2019-08-19] MEDS: SIMVASTATIN 80 MG TAB PO SCH (20:48)
--- NOTE | 2019-08-19 21:50 | Communication Note ---
Date of Service: August 19, 2019 Spouse called in to report that patient gets Prednisone 7mg qam PO daily. This wasn't currently entered on MAY. Will order medication for tomorrow AM, please discontinue if not approprite.
--- NOTE | 2019-08-19 22:36 | Hospitalist Progress Note ---
Date of Service August 19, 2019 Assessment & Plan (1) Unable to void: Tiago Johnson is a 73-year-old male with a past medical history of coronary artery disease status post surgical intervention, peripheral vascular disease with history of angioplasty and stent, PMR, CKD, and bladder cancer who underwent resection of a 3.9 cm bladder mass on 08/17/2019 who presents with increasing weakness and inability to void after surgery. Inability to void post bladder cancer resection Discussed with urology CTabdomen initially concerning for potential bladder perforation, films reviewed with urology and perforation felt to be unlikely Almanza placed, draining clear blood-tinged urine Patient in no acute distress Urology consulted, no intervention needed for now. No signs of bladder perforation. No signs of acute infection, defer antibiotic treatment at this time JOE on CKD Suspect post renal in the setting of inability to void, potentially volume depleted following surgery No signs of acute bleeding, urine blood-tinged but without shayla hematuria Creatinine elevated to 2.9; improved to 2.86 NSS@100 cc/h, BMP daily Hold nephrotoxins Weakness Similar to episodes the patient has had in the past of whole body weakness without focal deficit Patient with a past episode concerning for stroke with some effect on gait but minimal deficit on strength Patient may experience exacerbation of residual features with acute stress/illness Follow clinically History of CAD Continue aspirin daily Continue metoprolol 25 mg daily Continue simvastatin 80 mg p.o. nightly Hypertension Continue amlodipine daily Continue metoprolol as above Aspirin as above Hypothyroidism Continue Synthroid 100 mcg daily Depression/anxiety Continue escitalopram 20 mg every morning Bilateral knee pain: may be gout, no fractures on x-ray. will consult ortho. DVT prophylaxis: SCDs CODE STATUS: Full code Disposition: Medical surgical Updated . (2) Bladder cancer: (3) CKD (chronic kidney disease): (4) Peripheral neuropathy: (5) Polymyalgia rheumatica: Admission and Anticipated Discharge Date Admission Date: August 18, 2019 Subjective Patient reports no new symptoms. He continues to have pain in his bilateral knees. Review of Systems Review of Systems: All systems reviewed & are unremarkable except as noted in HPI & below Physical Exam Physical Exam: General: Somnolent, arouses easily to voice. Answers questions appropriately. NAD. Cooperative. HEENT: Atraumatic, normocephalic. Pupils equal and responsive to light and accommodation. Pulm: CTAB A&P. Symmetrical chest rise. No increase work of breathing. No respi ratory distress. Cardiac: RRR, -mrg. Radial pulses intact and symmetrical. Abdominal: Nontender, nondistended, soft. BS present. Extremities: Trace bilateral lower extremity edema. Sensation intact to soft touch in fingers and feet bilaterally. Schedule Supervisor strength intact bilaterally. Ankle dorsiflexion/plantar flexion intact bilaterally. Results & Data Results & Data ([facility]) Vital Signs (Past 12 Hours) Vital Signs Pulse Resp BP Pulse Ox 08/19/19 15:28 79 16 169/63 H 93 PG Care Time/CCT Total # of Minutes Spent Total Time Spent with Patient: Total time spent is greater than 50% in coordination of care (as documented) at patient's floor/unit and/or counseling patient: Coding Level of Care Code 26083 Subseq Hosp Care Lvl 2 Diagnoses Unable to void R33.9 Bladder cancer C67.9 CKD (chronic kidney disease) N18.9 Peripheral neuropathy G62.9 Polymyalgia rheumatica M35.3 Time Spent (min) 25
[2019-08-20] MEDS: SODIUM CHLORIDE 0.9% 1000ML 1,000 ML IV SCH ×2 (05:30→14:20)
[2019-08-20] MEDS: LEVOTHYROXINE SODIUM 100 MCG TABLET PO SCH (06:30)
[2019-08-20] MEDS: HydrALAZINE 10 MG TAB PO SCH ×3 (07:36→20:21)
[2019-08-20] MEDS: METOPROLOL TARTRATE 25 MG TAB PO SCH ×2 (07:36→20:21)
[2019-08-20] MEDS: AMLODIPINE BESYLATE 5 MG TAB PO SCH (07:36)
[2019-08-20] MEDS: GABAPENTIN 100 MG CAP PO SCH ×2 (08:31→20:22)
[2019-08-20] MEDS: ESCITALOPRAM OXALATE 20 MG TAB PO SCH (08:31)
[2019-08-20] MEDS: ASPIRIN 81 MG ECTAB PO SCH (08:32)
[2019-08-20] MEDS: predniSONE 5 MG TAB PO SCH (09:13)
[2019-08-20] MEDS: predniSONE 1 MG TAB PO SCH (09:13)
[2019-08-20] MEDS ORDERED: methylPREDNISolone acetate 80 MG/ML VIAL IA ONE ×2 (09:29→09:32)
[2019-08-20] MEDS ORDERED: BUPIVACAINE/EPINEPHRINE 0.5% MPF 1:200,000 30 ML VIAL INFIL ONE ×2 (09:29→09:32)
[2019-08-20] MEDS ORDERED: ETHYL CHLORIDE AER PER SPRAY 100 ML CAN EXT ONE (09:29)
[2019-08-20] MEDS ORDERED: LIDOCAINE/EPINEPHRINE 2% 1:200,000 20 ML SDV INFIL ONE (09:29)
--- NOTE | 2019-08-20 10:09 | Consultation Report ---
DATE OF CONSULTATION: 08/20/2019 CHIEF COMPLAINT: Bilateral knee pain, left worse than right. SUBJECTIVE: The patient is a 73-year-old male, recently underwent surgery for bladder cancer. He was admitted for inability to void. He states he went to get up. His knee is kind of buckled and he has been having increasing bilateral knee pain since. An Orthopedics consult was asked for. PHYSICAL EXAMINATION: On exam, he is currently lying in bed. The left knee seems considerably painful as he has pain with any active or passive motion. He does have a moderate sized effusion about that knee. There is no significant erythema. The knee appears stable to varus and valgus stress. The right knee is without significant effusion. The right knee is also more mobile and without pain compared to the left. X-RAYS: X-rays of the bilateral knees were reviewed. The right knee is neutrally aligned and does not show significant degenerative changes. The left knee demonstrates a varus alignment, severe medial compartment degenerative changes and almost bone on bone arthritis medially. ASSESSMENT AND PLAN: A 73-year-old male with bilateral knee pain, left worse than right. Per the patient, he has had a previous corticosteroid injection in the left knee years ago. I think he would likely benefit from an aspiration and injection in the left knee and a corticosteroid injection in the right knee also. I spoke to his on the phone. She understands and is in agreement with this. I will discuss this with Dr. Stevens also and if all is in agreement, will proceed with bilateral knee injection including aspiration on the left. MARQUITA
--- NOTE | 2019-08-20 12:48 | Orthopedic Progress Note ---
Date of Service August 20, 2019 Assessment & Plan (1) Degenerative arthritis of knee, bilateral: 73 yo male with inability to void s/p urologic surgery with bilat knee DJD. Pt to be re-evaluated tomorrow. Admission and Anticipated Discharge Date Admission Date: August 18, 2019 Subjective Pt resting in bed Physical Exam Physical Exam: Pt's right knee prepped with betadine and alcohol and then injected with 4 cc 0.5% sensorcaine and 80 mg depomedrol, pt tolerated well. Pt's left knee prepped with betadine and alcohol and then aspirated of 60 cc yellow, cloudy, inflammatory fluid and then injected with 4 cc 0.5 % sensorcaine and 80 mg depomedrol. Pt tolerated well. Left knee aspirate sent for gram stain, C & S, crystal analysis. Results & Data ([facility]) Vital Signs (Past 12 Hours) Vital Signs Temp Pulse Resp BP BP Pulse Ox 08/20/19 10:59 87 178/73 H 94 08/20/19 08:27 84 180/64 H 91 08/20/19 07:12 37.2 C 94 H 16 192/87 H 92
[2019-08-20 13:33] LABS: Appearance Synovial Fluid CLOUDY; Color Synovial Fluid PALE YELLOW; Mononuclear WBC Synovial 5.1 %; Polynuclear WBC Synovial 94.9 %; RBC Synovial Fluid (A) < 3000 /uL; Source Synovial Fluid KNEE; WBC Synovial Fluid (A) 36053 /ul (0-200)
[2019-08-20] MEDS: MULTIVITAMIN TAB PO SCH (16:25)
[2019-08-20] MEDS: COUGH DROP (SUGAR FREE) LOZ 24 LOZ/1 BOX BUCCAL PRN (17:12)
[2019-08-20 17:43] LABS: BUN Creatinine Ratio 18.5 (10-20); Calcium 8.3 mg/dl (8.5-10.1); Est GFR (African American) 35.3; Est GFR (Non-African American) 30.4; Potassium 4.4 mmol/L (3.5-5.1)
[2019-08-20] MEDS ORDERED: SODIUM CHLORIDE 0.45 % 1,000 ML IV SCH (18:15)
[2019-08-20] MEDS: SIMVASTATIN 80 MG TAB PO SCH (20:21)
--- NOTE | 2019-08-20 23:24 | Hospitalist Progress Note ---
Date of Service August 20, 2019 Assessment & Plan (1) Unable to void: Tiago Johnson is a 73-year-old male with a past medical history of coronary artery disease status post surgical intervention, peripheral vascular disease with history of angioplasty and stent, PMR, CKD, and bladder cancer who underwent resection of a 3.9 cm bladder mass on 08/17/2019 who presents with increasing weakness and inability to void after surgery. -Acute Metabolic encephalopathy/ Uremic encephalopathy Likely secondary to elebvated BUN and creat from problem number 2. will contiue to monitor him. Limit ativan and narcotics. should improve over next few days as his numbers improve. Inability to void post bladder cancer resection Discussed with urology CTabdomen initially concerning for potential bladder perforation, films reviewed with urology and perforation felt to be unlikely Almanza placed, draining clear blood-tinged urine Patient in no acute distress Urology consulted, no intervention needed for now. No signs of bladder perforation. No signs of acute infection, defer antibiotic treatment at this time JOE on CKD Suspect post renal in the setting of inability to void, potentially volume depleted following surgery No signs of acute bleeding, urine blood-tinged but without shayla hematuria Creatinine elevated to 2.9; has nestor gradually improving to 2.0 -placed on 03/16 ns will neeed to monitor chloride and sodium Weakness Similar to episodes the patient has had in the past of whole body weakness without focal deficit Patient with a past episode concerning for stroke with some effect on gait but minimal deficit on strength Patient may experience exacerbation of residual features with acute stress/illness Follow clinically History of CAD Continue aspirin daily Continue metoprolol 25 mg daily Continue simvastatin 80 mg p.o. nightly Hypertension Continue amlodipine daily Continue metoprolol as above Aspirin as above Hypothyroidism Continue Synthroid 100 mcg daily Depression/anxiety Continue escitalopram 20 mg every morning Bilateral knee pain: may be gout, no fractures on x-ray. improved after bilateral joint injections. DVT prophylaxis: SCDs CODE STATUS: Full code Disposition: Medical surgical Updated . (2) Bladder cancer: (3) CKD (chronic kidney disease): (4) Peripheral neuropathy: (5) Polymyalgia rheumatica: Admission and Anticipated Discharge Date Admission Date: August 18, 2019 Subjective Patient has no new complaints. His kner pain has improved after the injections. He does not recall that he is in the hospital. Updated , she is concerned that he may have a stroke, however he was becoming confused on day prior to admission. Review of Systems Review of Systems: All systems reviewed & are unremarkable except as noted in HPI & below Physical Exam Physical Exam: General: NAD. Cooperative. HEENT: Atraumatic, normocephalic. Pupils equal and responsive to light and accommodation. Pulm: CTAB A&P. Symmetrical chest rise. No increase work of breathing. No respiratory distress. Cardiac: RRR, -mrg. Radial pulses intact and symmetrical. Abdominal: Nontender, nondistended, soft. BS present. Extremities: Trace bilateral lower extremity edema. Sensation intact to soft touch in fingers and feet bilaterally. Street Cleaner strength intact bilaterally. Ankle dorsiflexion/plantar flexion intact bilaterally. Neuro: no focal abnormalities noted, he is orirented to person, knows the year, but not month. Knows who the president is. Results & Data Results & Data ([facility]) Vital Signs (Past 12 Hours) Vital Signs Temp Pulse Resp BP BP Pulse Ox 08/20/19 20:20 89 188/80 H 94 08/20/19 15:13 36.9 C 81 18 165/73 H 94 08/20/19 14:19 87 167/72 H 94 PG Care Time/CCT Total # of Minutes Spent Total Time Spent with Patient: Total time spent is greater than 50% in coordination of care (as documented) at patient's floor/unit and/or counseling patient: Coding Level of Care Code 56044 Subseq Hosp Care Lvl 3 Diagnoses Unable to void R33.9 Bladder cancer C67.9 CKD (chronic kidney disease) N18.9 Peripheral neuropathy G62.9 Polymyalgia rheumatica M35.3 Time Spent (min) 35
[2019-08-21 05:58] LABS: Basophils # (auto) 0.01 K/uL (0-0.2); Basophils % (auto) 0.1 %; Eosinophils # (auto) 0.01 K/uL (0-0.5); Eosinophils % (auto) 0.1 %; Hemoglobin 9.5 g/dL (14.0-18.0); Immature Granulocytes # (auto) 0.05 K/uL (0.00-0.02); Immature Granulocytes % (auto) 0.5 %; Lymphocytes # (auto) 0.44 K/uL (1.2-3.4); Lymphocytes % (auto) 4.6 %; Mean Corpuscular Hemoglobin 28.2 pg (25-34); Mean Corpuscular Hgb Conc 31.7 g/dL (32-36); Mean Platelet Volume 10.3 fL (7.4-10.4); Monocytes # (auto) 0.27 K/uL (0.11-0.59); Monocytes % (auto) 2.8 %; Neutrophils # (auto) 8.87 K/uL (1.4-6.5); Neutrophils % (auto) 91.9 %; Platelet Count 120 K/uL (130-400); RDW Coefficient of Variation 14.8 % (11.5-14.5); RDW Standard Deviation 48.5 fL (36.4-46.3); Red Blood Count 3.37 M/uL (4.7-6.1); White Blood Count 9.65 K/uL (4.8-10.8)
[2019-08-21] MEDS: LEVOTHYROXINE SODIUM 100 MCG TABLET PO SCH (06:04)
[2019-08-21 06:39] LABS: Albumin Level 2.3 gm/dl (3.4-5.0); BUN Creatinine Ratio 20.8 (10-20); Calcium 8.2 mg/dl (8.5-10.1); Creatinine Clr Calc Pharmacy 34.9 ml/min; Est GFR (African American) 42.3; Est GFR (Non-African American) 36.5; Potassium 4.5 mmol/L (3.5-5.1)
[2019-08-21 06:43] LABS: Albumin Globulin Ratio 0.7 (0.9-2); Bilirubin,Total 0.3 mg/dl (0.2-1); Globulin 3.5 gm/dl (2.5-4.0); Total Protein 5.8 gm/dl (6.4-8.2)
--- NOTE | 2019-08-21 07:25 | Orthopedic Progress Note ---
Date of Service August 21, 2019 Assessment & Plan (1) Degenerative arthritis of knee, bilateral: 73 yo male doing well 1 day s/p bilat knee corticosteroid injections, gram stain: no organisms, culture pending, crystals pending, likely inflammatory. Ortho to sign off, notify with any questions/concerns. Pt can f/u with [facility] as outpt prn. Admission and Anticipated Discharge Date Admission Date: August 18, 2019 Subjective Pt resting comfortably in bed, states knees feel much better Physical Exam Physical Exam: Knees benign, no recurrent effusion left knee Results & Data ([facility]) Vital Signs (Past 12 Hours) Vital Signs Temp Pulse Resp BP BP Pulse Ox 08/21/19 00:07 36.9 C 81 19 177/79 H 92 08/20/19 20:20 89 188/80 H 94 Laboratory Results Microbiology 08/20/19 07:25 Gram Stain - Final Knee,Left 08/19/19 14:57 Urine Culture - Preliminary Urine,Clean Catch No growth - Less than 1,000 colonies/mL, Final report to follow.
[2019-08-21] MEDS: ESCITALOPRAM OXALATE 20 MG TAB PO SCH (08:35)
[2019-08-21] MEDS: AMLODIPINE BESYLATE 5 MG TAB PO SCH (08:36)
[2019-08-21] MEDS: ASPIRIN 81 MG ECTAB PO SCH (08:36)
[2019-08-21] MEDS: predniSONE 1 MG TAB PO SCH (08:36)
[2019-08-21] MEDS: METOPROLOL TARTRATE 25 MG TAB PO SCH ×2 (08:36→20:53)
[2019-08-21] MEDS: predniSONE 5 MG TAB PO SCH (08:36)
[2019-08-21] MEDS: GABAPENTIN 100 MG CAP PO SCH ×2 (08:36→20:53)
[2019-08-21] MEDS: HydrALAZINE 10 MG TAB PO SCH ×3 (08:37→20:53)
[2019-08-21] MEDS: COUGH DROP (SUGAR FREE) LOZ 24 LOZ/1 BOX BUCCAL PRN (08:38)
--- NOTE | 2019-08-21 16:23 | Hospitalist Progress Note ---
Date of Service August 21, 2019 Assessment & Plan (1) Unable to void: Tiago Johnson is a 73-year-old male with a past medical history of coronary artery disease status post surgical intervention, peripheral vascular disease with history of angioplasty and stent, PMR, CKD, and bladder cancer who underwent resection of a 3.9 cm bladder mass on 08/17/2019 who presents with increasing weakness and inability to void after surgery. -Acute Metabolic encephalopathy/ Uremic encephalopathy Likely secondary to elevated BUN and creat from problem number 2. mental status much improved, per his today he sounded normal on the phone BUN/Cr down to near baseline Inability to void post bladder cancer resection Discussed with urology CTabdomen initially concerning for potential bladder perforation, films reviewed with urology and perforation felt to be unlikely Thompson placed, draining clear blood-tinged urine Patient in no acute distress Urology consulted, no intervention needed for now. No signs of bladder perforation. Dr Gonsales recommends keeping thompson 5-7 days, follow up in office at the end of the week for voiding trial JOE on CKD Suspect post renal in the setting of inability to void, potentially volume depleted following surgery No signs of acute bleeding, urine blood-tinged but without shayla hematuria Creatinine elevated to 3.1 on admission; improved to 1.78 today stop any further IV fluids Weakness Similar to episodes the patient has had in the past of whole body weakness without focal deficit Patient with a past episode concerning for stroke with some effect on gait but minimal deficit on strength Patient may experience exacerbation of residual features with acute stress/illness Follow clinically, doing much better, ambulating in the halls today History of CAD Continue aspirin daily Continue metoprolol 25 mg daily Continue simvastatin 80 mg p.o. nightly Hypertension Continue amlodipine daily Continue metoprolol as above Aspirin as above Hypothyroidism Continue Synthroid 100 mcg daily Depression/anxiety Continue escitalopram 20 mg every morning Bilateral knee pain: may be gout, no fractures on x-ray. improved after bilateral joint injections. DVT prophylaxis: SCDs CODE STATUS: Full code Disposition: Medical surgical Updated over the phone today plan for d/c to home with thompson tomorrow (2) Bladder cancer: (3) CKD (chronic kidney disease): (4) Peripheral neuropathy: (5) Polymyalgia rheumatica: Admission and Anticipated Discharge Date Admission Date: August 18, 2019 Subjective patient doing well, walked around the halls 3 times today making adequate urine via thompson Cr down to 1.78 from peak of 3.1 reviewed the chart, urology would like patient to keep thompson for 5-7 days and follow up in office this would be later this week called patient's to discuss going home tomorrow, she agrees, will wait for my call Review of Systems Review of Systems: All systems reviewed & are unremarkable except as noted in HPI & below Constitutional: no fever, no chills, no sweats, no fatigue and no weakness Ear, Nose, Mouth, Throat: + sore throat (this morning, resolved with lozenges) Respiratory: no cough and no dyspnea Cardiovascular: no chest pain and no edema Gastrointestinal: no abdominal pain, no nausea, no vomiting, no constipation and no diarrhea/loose stools Physical Exam Constitutional: WD/WN, vitals as above + overweight Eyes: PERRL, conjunctivae normal, anicteric sclerae ENMT: external ear and nose normal, oropharynx normal Neck: trachea midline, no thyromegaly Respiratory: normal respiratory effort, lungs clear to auscultation Cardiovascular: RRR, no murmur, no edema Gastrointestinal (Abdomen): normal bowel sounds, soft, nontender, no hep atosplenomegaly Musculoskeletal: no cyanosis or clubbing, extremities motor strength 5/5 Skin: no rashes, warm and dry Neurologic: patellar DTR's 2+ bilat, sensation intact and PERRL, EOMI, accommodation nl, no face palsy, no dysarthria Psychiatric: A+Ox3, euthymic affect Genitourinary: no testicular masses, no penis abnormality (thompson in place) Lymphatic: no cervical or axillary lymphadenopathy Results & Data Results & Data ([facility]) Vital Signs (Past 12 Hours) Vital Signs Temp Pulse Resp BP BP Pulse Ox 08/21/19 15:32 36.6 C 83 16 167/70 H 96 08/21/19 14:41 73 170/71 H 08/21/19 14:09 97 08/21/19 07:46 36.6 C 82 18 179/79 H 95 Laboratory Results Laboratory Results - last 24 hr 08/20/19 08/20/19 08/21/19 07:25 17:17 04:52 WBC 9.65 RBC 3.37 L Hgb 9.5 L Hct 30.0 L MCV 89.0 MCH 28.2 MCHC 31.7 L RDW Std Deviation 48.5 H RDW Coeff of Maria L 14.8 H Plt Count 120 L MPV 10.3 Immature Gran % (Auto) 0.5 Neut % (Auto) 91.9 Lymph % (Auto) 4.6 Sebastian % (Auto) 2.8 Eos % (Auto) 0.1 Baso % (Auto) 0.1 Immature Gran # (Auto) 0.05 H Neut # (Auto) 8.87 H Lymph # (Auto) 0.44 L Sebastian # (Auto) 0.27 Eos # (Auto) 0.01 Baso # (Auto) 0.01 Sodium 143 Potassium 4.4 Chloride 116 H Carbon Dioxide 20 L Anion Gap 7.0 BUN 38 H Creatinine 2.07 H D Est Cr Clr Drug Dosing 30.0 Est GFR ( Amer) 35.3 Est GFR (Non-Af Amer) 30.4 BUN/Creatinine Ratio 18.5 Glucose 142 H Calcium 8.3 L Total Bilirubin AST ALT Alkaline Phosphatase Total Protein Albumin Globulin Albumin/Globulin Ratio Synovial Crystals 08/21/19 04:52 WBC RBC Hgb Hct MCV MCH MCHC RDW Std Deviation RDW Coeff of Maria L Plt Count MPV Immature Gran % (Auto) Neut % (Auto) Lymph % (Auto) Sebastian % (Auto) Eos % (Auto) Baso % (Auto) Immature Gran # (Auto) Neut # (Auto) Lymph # (Auto) Sebastian # (Auto) Eos # (Auto) Baso # (Auto) Sodium 143 Potassium 4.5 Chloride 117 H Carbon Dioxide 21 Anion Gap 5.0 BUN 37 H Creatinine 1.78 H Est Cr Clr Drug Dosing 34.9 Est GFR ( Amer) 42.3 Est GFR (Non-Af Amer) 36.5 BUN/Creatinine Ratio 20.8 H Glucose 132 H Calcium 8.2 L Total Bilirubin 0.3 AST 21 ALT 38 Alkaline Phosphatase 76 Total Protein 5.8 L Albumin 2.3 L Globulin 3.5 Albumin/Globulin Ratio 0.7 L Synovial Crystals Medications Administered Current Inpatient Medications Acetaminophen (Tylenol) 650 mg PO Q4H PRN PRN Reason: pain/fever Stop: 09/17/19 05:09 Last Admin: 08/19/19 20:47 Dose: 650 mg Documented by: Amlodipine Besylate (Norvasc) 5 mg PO DAILY [facility] Stop: 09/17/19 08:59 Last Admin: 08/21/19 08:36 Dose: 5 mg Documented by: Aspirin (Ecotrin Ectab) 81 mg PO QAM [facility] Stop: 09/17/19 08:59 Last Admin: 08/21/19 08:36 Dose: 81 mg Documented by: Escitalopram Oxalate (Lexapro Tab) 20 mg PO QAM [facility] Stop: 09/17/19 08:59 Last Admin: 08/21/19 08:35 Dose: 20 mg Documented by: Gabapentin (Neurontin) 100 mg PO BID [facility] Stop: 09/17/19 08:59 Last Admin: 08/21/19 08:36 Dose: 100 mg Documented by: Hydralazine HCl (Apresoline) 10 mg PO TID [facility] Stop: 09/17/19 08:59 Last Admin: 08/21/19 14:41 Dose: 10 mg Documented by: Levothyroxine Sodium (Synthroid) 100 mcg PO DAILYBB [facility] Stop: 09/17/19 06:29 Last Admin: 08/21/19 06:04 Dose: 100 mcg Documented by: Menthol (Nice) 1 allyssa BUCCAL Q1HWA PRN PRN Reason: Sore Throat Stop: 09/19/19 16:29 Last Admin: 08/21/19 08:38 Dose: 1 allyssa Documented by: Metoprolol Tartrate (Lopressor) 25 mg PO BID [facility] Stop: 09/17/19 08:59 Last Admin: 08/21/19 08:36 Dose: 25 mg Documented by: Multivitamins (Multivitamin Tab) 1 tab PO DAILYBD [facility] Stop: 09/17/19 15:29 Last Admin: 08/20/19 16:25 Dose: 1 tab Documented by: Ondansetron HCl (Zofran) 4 mg IV Q6H PRN PRN Reason: Nausea Stop: 09/17/19 05:09 Prednisone (Prednisone) 2 mg PO QAM [facility] Stop: 09/19/19 08:59 Last Admin: 08/21/19 08:36 Dose: 2 mg Documented by: Prednisone (Prednisone) 5 mg PO QAM [facility] Stop: 09/19/19 08:59 Last Admin: 08/21/19 08:36 Dose: 5 mg Documented by: Simvastatin (Zocor) 80 mg PO HS [facility] Stop: 09/17/19 20:59 Last Admin: 08/20/19 20:21 Dose: 80 mg Documented by: PG Care Time/CCT Total # of Minutes Spent Total Time Spent with Patient: Total time spent is greater than 50% in coordination of care (as documented) at patient's floor/unit and/or counseling patient: Coding Level of Care Code 96626 Subseq Hosp Care Lvl 3 Diagnoses Unable to void R33.9 Bladder cancer C67.9 CKD (chronic kidney disease) N18.9 Peripheral neuropathy G62.9 Polymyalgia rheumatica M35.3
[2019-08-21] MEDS: MULTIVITAMIN TAB PO SCH (17:15)
[2019-08-21] MEDS: SIMVASTATIN 80 MG TAB PO SCH (20:53)
[2019-08-22 05:33] LABS: BUN Creatinine Ratio 23.5 (10-20); Calcium 8.2 mg/dl (8.5-10.1); Creatinine Clr Calc Pharmacy 32.7 ml/min; Est GFR (African American) 39.1; Est GFR (Non-African American) 33.7; Potassium 4.5 mmol/L (3.5-5.1)
[2019-08-22] MEDS: LEVOTHYROXINE SODIUM 100 MCG TABLET PO SCH (05:38)
[2019-08-22] MEDS: predniSONE 1 MG TAB PO SCH (08:30)
[2019-08-22] MEDS: METOPROLOL TARTRATE 25 MG TAB PO SCH (08:30)
[2019-08-22] MEDS: GABAPENTIN 100 MG CAP PO SCH (08:30)
[2019-08-22] MEDS: HydrALAZINE 10 MG TAB PO SCH (08:30)
[2019-08-22] MEDS: ASPIRIN 81 MG ECTAB PO SCH (08:31)
[2019-08-22] MEDS: predniSONE 5 MG TAB PO SCH (08:31)
[2019-08-22] MEDS: ESCITALOPRAM OXALATE 20 MG TAB PO SCH (08:31)
[2019-08-22] MEDS ORDERED: AMLODIPINE BESYLATE 5 MG TAB PO SCH (09:00)
--- NOTE | 2019-08-22 09:35 | Discharge Summary ---
Date of Service August 22, 2019 Admission HPI Per Admitting Provider Tiago Johnson is a 73-year-old male with a past medical history of coronary artery disease status post surgical intervention, peripheral vascular disease with history of angioplasty and stent, PMR, CKD, and bladder cancer who underwent resection of a 3.9 cm bladder mass on 08/17/2019 who presents with increasing weakness and inability to void after surgery. Zach is seen at the bedside with his . He is very somnolent after receiving pain medication, but arouses easily to voice and answers questions appropriately before falling back asleep. He and his report that he felt mostly well after surgery and prefer to be discharged home, but were told that if he was not able to void within several hours to return for reevaluation. He was not able to void by 10 PM so they presented back to the emergency depart ment. He and his also note that he has had intermittent episodes in the past of whole body weakness without focal weakness, and although he was able to walk without difficulty and had no problems with ambulation at time of discharge became increasingly weak and was not able to ambulate at home. He denies fever, chills, sweats and abdominal pain. Denies focal weakness. No chest pain, chest pressure, or shortness of breath. CTabdomen was potentially concerning for perforation on initial stat rad read, films were reviewed between ED provider and urology. It was felt that there was no perforation, and patient was safe to be admitted for observation until he could be seen by urology. A Thompson catheter was placed by ED provider which drained clear, blood-tinged urine without clots. Medical history: Reviewed Surgical history: Reviewed Allergies: Reviewed CODE STATUS: Full code, discussed with patient and Social history: Former tobacco use, quit greater than 1 year ago. Denies regular alcohol use and recreational drug use. Lives at home with his . Principal Diagnosis Acute kidney injury due to urinary retention Discharge Exam Constitutional WD/WN, vitals as above + overweight Eyes PERRL, conjunctivae normal, anicteric sclerae ENMT external ear and nose normal, oropharynx normal Neck trachea midline, no thyromegaly Respiratory normal respiratory effort, lungs clear to auscultation Cardiovascular RRR, no murmur, no edema Gastrointestinal (Abdomen) normal bowel sounds, soft, nontender, no hepatosplenomegaly Musculoskeletal no cyanosis or clubbing, extremities motor strength 5/5 Skin no rashes, warm and dry Neurologic patellar DTR's 2+ bilat, sensation intact and PERRL, EOMI, accommodation nl, no face palsy, no dysarthria Psychiatric A+Ox3, euthymic affect Genitourinary no testicular masses, no penis abnormality (thompson in place) Lymphatic no cervical or axillary lymphadenopathy Discharge Data Allergies Allergy/AdvReac Type Severity Reaction Status Date / Time No Known Allergies Allergy Verified 08/17/19 10:21 Consultations 08/18/19 03:00 ED Decision to Admit Stat 08/18/19 05:10 Consult Urology Routine 08/19/19 13:38 Consult Orthopedic Surgery Routine Ordered Studies 08/18/19 00:32 CT abd pelvis wo con Stat Hospital Course (1) Unable to void: Tiago Johnson is a 73-year-old male with a past medical history of coronary artery disease status post surgical intervention, peripheral vascular disease with history of angioplasty and stent, PMR, CKD, and bladder cancer who underwent resection of a 3.9 cm bladder mass on 08/17/2019 who presents with increasing weakness and inability to void after surgery. -Acute Metabolic encephalopathy/ Uremic encephalopathy Likely secondary to elevated BUN and creat from problem number 2. mental status back to baseline, he is AAOX3 BUN/Cr down to baseline Inability to void post bladder cancer resection, acute urinary retention Discussed with urology CTabdomen initially concerning for potential bladder perforation, films reviewed with urology and perforation felt to be unlikely Thompson placed, draining clear blood-tinged urine, now clear urine Urology consulted, no intervention needed for now. No signs of bladder perforation. Dr Gonsales recommends keeping thompson 5-7 days, follow up in office at the end of the week for voiding trial, attached to leg bag prior to discharge JOE on CKD Suspect post renal in the setting of inability to void, potentially volume depleted following surgery No signs of acute bleeding, urine blood-tinged but without shayla hematuria Creatinine elevated to 3.1 on admission; improved to 1.78 yesterday, 1.9 today, this is his baseline, 1.8-2.0 based on prior labs - eating and drinking well Weakness Similar to episodes the patient has had in the past of whole body weakness without focal deficit Patient with a past episode concerning for stroke with some effect on gait but minimal deficit on strength Patient may experience exacerbation of residual features with acute stress/illness Follow clinically, doing much better, ambulating in the halls today with therapy, he is set up for home therapy History of CAD Continue aspirin daily Continue metoprolol 25 mg daily Continue simvastatin 80 mg p.o. nightly Hypertension Continue amlodipine daily Continue metoprolol as above Aspirin as above Hypothyroidism Continue Synthroid 100 mcg daily Depression/anxiety Continue escitalopram 20 mg every morning Bilateral knee pain: may be gout, no fractures on x-ray. improved after bilateral joint injections, can follow up with ortho as needed in the future DVT prophylaxis: SCDs CODE STATUS: Full code Disposition: d/c to home with home therapy and home health (2) Bladder cancer: (3) CKD (chronic kidney disease): (4) Peripheral neuropathy: (5) Polymyalgia rheumatica: Total Time Total Time Spent Total Time Spent (In Minutes): 33 minutes Total Time Includes: Examination of the Patient, Discharge Planning, Medication Reconciliation, Communication With Other Providers (Dr. Gonsales) and Other (spoke with his ) Discharge Plan Discharge Items Patient Disposition: Home - Self-Care Reason For Visit: INABILITY TO VOID, JOE Discharge Diagnosis: Urinary retention after bladder surgery Acute kidney injury on CKD stage III Hypertension Condition on Discharge: Good Goals: follow up later this week with urology for voiding trial, pathology results follow up with PCP in 1-2 weeks for blood pressure check Activity: Resume your previous activity Non-emergency contact: Primary Care Provider Call non-emergency contact if: you have any medication questions, your symptoms worsen and you have a fever Follow-up/Referrals: Onel Gonsales DO [Physician] - 08/30/19 9:20 am (2-3 days) Mane Mosquera [Primary Care Provider] - 09/11/19 3:00 pm ( 1-2 weeks) Diet: Heart Healthy Addtl Attending Provider Instructions: Medications: - AMLODIPINE: dose increased from 5mg to 10mg for better blood pressure control Urinary retention after bladder surgery, acute kidney injury will keep thompson catheter until you see urology in office, will attach leg bag renal function has returned to your baseline, Cr is 1.9 today, it was as high as 3.1 on admission no evidence of urinary tract infection, the issue was purely mechanical please follow up later this week with [facility] Urology please call them tomorrow if you do not hear from them today, I reached out to Dr. Gonsales to let him know you were discharged Hypertension: blood pressure readings have been elevated despite being on your home regimen will increase one of your medications, amlodipine, from 5mg to 10mg daily in the morning follow up with Dr. Mosquera in 1-2 weeks for blood pressure check Pending Studies at Discharge: No Stand-Alone Forms: My [facility], Smoking Cessation Medications and DC Order Prescriptions: New amlodipine [Norvasc] 5 mg Tablet 10 mg PO DAILY 30 Days Qty: 60 RF: 1 Continued gabapentin 100 mg capsule 100 mg PO BID 30 Days Qty: 60 RF: 0 metoprolol tartrate 25 mg tablet 25 mg PO BID RF: 0 levothyroxine 100 mcg tablet 100 mcg PO QAM RF: 0 escitalopram oxalate [Lexapro] 20 mg tablet 20 mg PO QAM RF: 0 simvastatin 80 mg tablet 80 mg PO HS RF: 0 furosemide 40 mg tablet 40 mg PO DAILY RF: 0 cholecalciferol (vitamin D3) [Vitamin D3] 2,000 unit Tablet 2,000 unit PO QAM RF: 0 PreserVision AREDS-2 [id number]-mg Capsule 1 tab PO BID RF: 0 aspirin [Aspir-81] 81 mg Tablet,Delayed Release (Dr/Ec) 81 mg PO QAM RF: 0 hydralazine 10 mg Tablet 10 mg PO TID RF: 0 nitroglycerin [Nitrolingual] 400 mcg/spray Baird,Non-Aerosol See Rx Instructions .ROUTE .COMPLEX PRN (Reason: Chest Pain) RF: 0 multivitamin Tablet,Chewable 1 tab PO DAILYBD RF: 0 oxycodone-acetaminophen [Percocet] 7.5-325 mg tablet 1 tab PO Q8H PRN (Reason: pain) Qty: 7 RF: 0 Discontinued ciprofloxacin HCl [Cipro] 500 mg tablet 500 mg PO Q12H Qty: 10 RF: 0 amlodipine 5 mg tablet 5 mg PO DAILY RF: 0 Discharge Orders: Discharge Order (Routine); Ordered 08/22/19 Ordered By: Freeman Kinney Admission Data Admit Date/Time: 08/18/19 19:35 Attending Provider: Freeman Kinney Admit Provider: Mo Fofana Primary Care Provider: Mane Mosquera Other Providers: Chloé Miller ; Onel Gonsales ; Charlie Stevens Other Interventions: Discharge Summary Assessment (RN) Last Done: 08/22/19 10:09 DC Date/Time DO NOT enter until pt leaves facility: 08/22/19 11:59 Coding Level of Care Code D/C Day Management >30 mins Diagnoses Unable to void R33.9 Bladder cancer C67.9 CKD (chronic kidney disease) N18.9 Peripheral neuropathy G62.9 Polymyalgia rheumatica M35.3
== END 2019-08-22 11:59 | disposition home or self-care (01) ==
LOC: 3E 23:17 → ED 23:17 → SUATTDRO 08-18 04:04 → 3E 08-18 04:42 → SUATTDRO 08-18 19:35

== ENCOUNTER 2019-11-28 17:49 | Inpatient (IN) ==
[2019-11-28] MEDS ORDERED: POLYETHYLENE (MIRALAX) 17 GM PACK PO PRN ×2 (18:08→23:35)
[2019-11-28] MEDS ORDERED: ACETAMINOPHEN 325 MG TAB PO PRN ×2 (18:08→23:35)
[2019-11-28] MEDS ORDERED: ONDANSETRON INJ 2 MG/ML 2 ML VIAL IV PRN ×2 (18:08→23:35)
[2019-11-28 22:49] LABS: Hematocrit (blood only) 28.6 % (42-52); Immature Granulocytes # (auto) 0.06 K/uL (0.00-0.02); Immature Granulocytes % (auto) 0.4 %; Lymphocytes # (auto) 0.66 K/uL (1.2-3.4); Lymphocytes % (auto) 4.2 %; Mean Corpuscular Hemoglobin 28.3 pg (25-34); Mean Corpuscular Volume 89.9 fL (80-100); Mean Platelet Volume 9.9 fL (7.4-10.4); Monocytes # (auto) 0.88 K/uL (0.11-0.59); Monocytes % (auto) 5.6 %; Neutrophils # (auto) 14.07 K/uL (1.4-6.5); Neutrophils % (auto) 89.8 %; Platelet Count 141 K/uL (130-400); RDW Coefficient of Variation 16.4 % (11.5-14.5); Red Blood Count 3.18 M/uL (4.7-6.1); White Blood Count 15.67 K/uL (4.8-10.8)
[2019-11-28 23:06] LABS: Albumin Level 2.9 gm/dl (3.4-5.0); Calcium 8.3 mg/dl (8.5-10.1); Creatinine Clr Calc Pharmacy 19.7 ml/min; Est GFR (African American) 20.5; Est GFR (Non-African American) 17.7; Magnesium 2.2 mg/dl (1.8-2.4); Mean Corpuscular Hgb Conc 31.5 g/dL (32-36); Potassium 4.7 mmol/L (3.5-5.1)
[2019-11-28 23:09] LABS: Albumin Globulin Ratio 0.9 (0.9-2); Bilirubin,Total 0.3 mg/dl (0.2-1); Globulin 3.3 gm/dl (2.5-4.0); Phosphorus 4.6 mg/dl (2.5-4.9); Total Protein 6.2 gm/dl (6.4-8.2)
[2019-11-28] MEDS ORDERED: VANCOMYCIN CONSULT ACTIVE PRN (23:35)
[2019-11-28] MEDS ORDERED: NITROGLYCERIN SL 0.4 MG/TAB TAB SL PRN (23:35)
--- NOTE | 2019-11-29 00:12 | History & Physical Report ---
Date of Service November 29, 2019 Assessment & Plan (1) CAD (coronary artery disease): Tiago Freeman is a 74 year old man with a past medical history of CKD III, PMR on chronic steroids, CAD and CHF who is a direct admit from [facility] for CHF exacerbation in setting of an acute pneumonia and worsening JOE on CKD Pneumonia RLL and YECENIA pneumonia treated at outside hospital with ceftiraxone and azithromycin for one day Blood culture showing gram positive cocci, will add on vancomycin CXR ordered on admission to our facility White count 15.67 will continue to trend Will need to follow up on culture results from outside facility CHF Patient fluid overloaded and edematous bilateral lower extremity BNP >1000 on admission to outside hospital CXR ordered on admission to our facility will review Lasix 40 mg IV BID ordered starting tomorrow as patient is not in any distress or hypoxemic respiratory failure at present and I will let him sleep tonight Strict I's and O's and daily weights JOE on CKD Patient with creatinine of 3.22 on admission baseline around 2, per outside hospital was becoming oliguric despite lasix use, will monitor urine output closely Dr. Bianchi of [facility] nephrology consulted knows patient No indication for emergent evaluation or dialysis Electrolytes within normal limits, still making urine, fluid overload sounds to be improving hyperkalemia Down from outside facility to 4.7 Likely from diuresis Will continue to monitor PMR Continuing home prednisone Hypertension COntinuing home beta mckay and hydralazine CAD Stable no ischemia ECG without acute changes F/E/N: heart healthy low sodium diet DVT PPx: Lovenox Dispo: Admit for Nephrology evaluation and continued IV antibiotics FULL CODE (2) Dyslipidemia: (3) Essential tremor: (4) Hypertension: (5) History of stroke: (6) Polymyalgia rheumatica: (7) CKD (chronic kidney disease): (8) Bladder cancer: (9) CHF (congestive heart failure): (10) Pneumonia: (11) Bacteremia: Admission and Anticipated Discharge Date Admission Date: November 28, 2019 History of Present Illness Chief Complaint: Direct Admit from [facility] for CHF, JOE on CKD and Pneumonia Primary Care Provider: Mane Mosquera Tiago Freeman is a 74 year old man with a past medical history significant for CKD III (Followed by Blanca Bianchi of [facility]), CHF history of mild mitral and tricuspid insufficiency, CAD s/p bypass, peripheral arterial disease status post stenting, CHF (No recent echo), anemia (normocytic), and bladder cancer status post resection and BCG treatments presented to [facility] on the night of 11/26 with complaints of weakness, chills, worsening lower limb edema moving all the way up legs and into his abdomen. leg swelling, weakness and chills have been getting progressively worse over the past month, but this last weekend while camping with family he noted that he was also far more weak and only able to go a few steps before needing to stop to catch his breath. He has been sleeping propped up in bed, and has also had a cough. On presentation to ED patient found to have elevated BNP of 1200 and pulmonary vascular congestion on CXR. CT showing pulmonary edema as well as RLL and YECENIA infiltrate, Potassium on admission elevated to 5.3, creatinine was elevated to 2.9 up from baseline around 2. Patient wished to remain at [facility] rather than be transferred to [facility] though hospitalist team was concerned that patient may need nephrology consultation and possible dialysis/UF if patient was unable to diurese. He was started on azithromycin and rocephin watched overnight at [facility] but today decision was made to transfer as patient's urine output went down and creatinine went up. Due to decreased response to diuretics patient was started on a dopamine drip at outside facility to encourage renal perfusion. blood culture showing growth of gram positive cocci from outside facility On arrival to our facility patient reports that he is feeling well, denies shortness of breath at present and thinks that his swelling has gone down quite a bit in his lower extremities. He denies fevers, chills, chest pain shortness of breath, cough, abdominal pain but does endorse abdominal swelling. He is afebrile and oxygenating well on room air rest of vitals WNL. He denies almost every question I ask him about symtoms even before his initial admission due to being a seemingly tough fellow but his redirects him to answer truthfully. Patient denies smoking, only uses occasional alcohol (One beverage every three weeks or so) and does nto use drugs. Full Code Allergies Allergy/AdvReac Type Severity Reaction Status Date / Time No Known Allergies Allergy Verified 10/05/19 11:23 Home Medications Home Medications Medication Instructions Recorded Confirmed Type escitalopram oxalate 20 mg tablet 20 mg PO QAM tab 10/25/18 11/28/19 History levothyroxine 100 mcg tablet 100 mcg PO QAM tab 10/25/18 11/28/19 History PreserVision AREDS-2 1 tab PO BID 02/17/19 11/28/19 History aspirin [Aspir-81] 81 mg PO QAM 02/17/19 11/28/19 History cholecalciferol (vitamin D3) 2,000 unit PO QAM 02/17/19 11/28/19 History [Vitamin D3] gabapentin 100 mg capsule 100 mg PO TID 90 Days #270 cap 09/11/19 11/28/19 Rx hydralazine 10 mg tablet 20 mg PO TID tab 09/11/19 11/28/19 History metoprolol tartrate 25 mg tablet 50 mg PO BID tab 09/11/19 11/28/19 History albuterol mcg INHALATION PRN 11/28/19 History amlodipine 10 mg PO BID 11/28/19 11/28/19 History furosemide [Lasix] 40 mg PO Q OTHER DAY 11/28/19 11/28/19 History prednisone 5 mg PO DAILY 11/28/19 11/28/19 History rosuvastatin [Crestor] 40 mg PO DAILY 11/28/19 11/28/19 History Past Med/Surg History Medical History (Updated 11/29/19 @ 17:36 by Karl Pacheco) Bladder cancer 03/02 CAD (coronary artery disease) s/p stents x4 total- (1995, 2009); CABG x 5 (10/20/2018) Dyslipidemia Essential tremor Essential tremor vs secondary to chronic steroids per 03/2019 neuro note;on beta mckay and gabapentin per neurology ([facility] neurology) Glaucoma History of blood transfusion s/p CABG 10/2018 History of stroke remote incidental finding on imaging (years ago) Hypertension Hypothyroidism Inguinal hernia Kidney disease stage III- "going into stage IV" per Dr. Nuno BURNS Macular degeneration b/l with eye injections by Dr. Gilbert Osteoarthritis Peripheral neuropathy likely idiopathic/age related per neurology ([facility] neurology) Peripheral vascular disease Polymyalgia rheumatica on chronic steroids Rotator cuff tear right Sleep apnea non-compliant CPAP Transient ischemic attack (TIA) 05/16/19- testing was negative for stroke at [facility], pt had slurred speech and left facial droop which resolved after a few hours. said it was a TIA that did not show up on scan. Did request records- dx'ed and admitted to [facility] with weakness, mild left facial droop, and ambulatory dysfunction- MRI showed no acute process. No mention of TIA Umbilical hernia Surgical History History of appendectomy History of biopsy of bladder with BCG treatments History of cardiac cath x2- 4 stents total (1995, 2009) History of cataract surgery R&L History of cholecystectomy History of colonoscopy History of endoscopy History of open heart surgery CABG x 5 (10/2018) History of vascular surgery bilateral lower extremities Family History Brother Lymphoma Arthritis COPD (chronic obstructive pulmonary disease) Diabetes Kidney disease Coronary heart disease Heart disease Sister Arthritis Diabetes Parkinson disease Mother , age 85 with a brain tumor. Heart disease Diabetes Father , age 59 of an [place]. 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 Feels Safe at Home: Yes Safety Concerns: Feels Safe At This Time Review of Systems Review of Systems: All systems reviewed & are unremarkable except as noted in HPI & below Physical Exam Constitutional: well developed, well nourished and + obese; no acute distress and not ill appearing Eyes: PERRL, conjunctivae normal, anicteric sclerae ENMT: external ear and nose normal, oropharynx normal Neck: normal visual inspection Difficult to assess JVD secondary to body habitus Respiratory: normal respiratory effort, lungs clear to auscultation Cardiovascular: Rate/Rhythm: regular rate and regular rhythm Heart Sounds: no click, no gallop, no murmur and no cardiac rub Palpation: normal PMI Extremities: + edema (entire lower extremity 2+ pitting edema) Gastrointestinal (Abdomen): Inspection/Auscultation: + abdomen distended Percussion/Palpation: abdomen soft; abdomen nontender and no guarding Skin: no rashes, warm and dry Results & Data Results & Data ([facility]) Vital Signs (Past 12 Hours) Vital Signs Temp Pulse Pulse Resp BP Pulse Ox 11/28/19 22:56 36.9 C 81 20 142/63 H 95 11/28/19 22:16 37.0 C 86 18 146/66 H 93 Code Status & VTE Plan VTE Prophylaxis Plan VTE Prophylaxis will be ordered: Yes Supervising Physician Co-Signing Physician Notes Attending addendum: I have physically seen this patient, have supervised the medical residents activities, and agree with the H&P unless as otherwise noted. Assessment and Plan: Pneumonia involving right lower lobe and left upper lobe- Treatment initially begun at [facility] as inpatient with ceftriaxone and azithromycin. Blood cultures with gram-positive cocci. We will therefore add vancomycin. Follow blood cultures and sensitivities. JOE on CKD- Concern regarding oliguria that he developed at previous facility, [facility] nephrology, Dr. Blanca Ferrell, who arranged for transfer. Follow serial laboratories CAD/CHF- The patient will be admitted to telemetry for serial cardiac enzymes, serial EKG's, cardiac rhythm monitoring and a 2-D echocardiogram with Dopplers. Lasix 40 mg IV twice daily, in coordination with nephrology Remaining orders and notations as noted Resident Activity Tracking Resident Involvement: Resident Care Provided Care Provided: Adult Hospital Medicine
[2019-11-29] MEDS ORDERED: VANCOMYCIN HCL 1,750 MG in SODIUM CHLORIDE 0.9% 500 ML IV SCH (01:00)
[2019-11-29] MEDS: AZITHROMYCIN 500 MG in DEXTROSE 5% 250 ML IV SCH (01:13)
[2019-11-29] MEDS: LEVOTHYROXINE SODIUM 100 MCG TABLET PO SCH (06:21)
[2019-11-29 07:39] LABS: INR 1.2 (0.9-1.1); Prothrombin Time 12.4 Seconds (9.0-12.0)
[2019-11-29] MEDS: AMLODIPINE BESYLATE 5 MG TAB PO SCH ×2 (07:39→21:17)
[2019-11-29] MEDS: CEROVITE ADV FORMULA TAB PO SCH ×2 (07:39→21:17)
[2019-11-29] MEDS: ESCITALOPRAM OXALATE 20 MG TAB PO SCH (07:39)
[2019-11-29] MEDS: predniSONE 5 MG TAB PO SCH (07:39)
[2019-11-29] MEDS: ASPIRIN 81 MG ECTAB PO SCH (07:39)
[2019-11-29] MEDS: GABAPENTIN 100 MG CAP PO SCH ×3 (07:39→21:17)
[2019-11-29] MEDS: CHOLECALCIFEROL 1,000 UNITS 25 MCG TAB PO SCH (07:40)
[2019-11-29] MEDS: ROSUVASTATIN CALCIUM 20 MG TAB PO SCH (07:40)
--- NOTE | 2019-11-29 07:42 | XRay Report ---
XR chest 1V portable HISTORY: Hypoxemic Respiratory Failure fluid overload COMPARISON: Chest 01/26/2016. FINDINGS: The heart is mildly enlarged. There are poststernotomy changes. No pleural effusions. No pn eumothorax. There is right greater than left interstitial and vascular thickening. This suggests mild asymmetric pulmonary edema. IMPRESSION: Cardiomegaly with mild asymmetric pulmonary edema. ACT 112: Negative or not required by law. Electronically signed by: Froilan Woo M.D. 11/29/2019 7:40 AM
[2019-11-29] MEDS ORDERED: FUROSEMIDE 40 MG in SYRINGE 0 ML IV SCH (09:00)
[2019-11-29] MEDS ORDERED: ENOXAPARIN INJ 30 MG/0.3 ML SYR SQ SCH (09:00)
[2019-11-29] MEDS: cefTRIAXone SODIUM 2,000 MG in DEXTROSE 5% 50 ML IV SCH (09:30)
--- NOTE | 2019-11-29 09:36 | Pharmacy Report ---
Pharmacy Abx Initial Consult - Date of Service November 29, 2019 - Pharmacy Dosing Scope Date of Consult: 11/29/2019 Consultation requested by: Dr. Gamez Pharmacy is consulted to initiate Vancomycin IV dosing therapy, order appropriate labs and adjust drug dose/frequency. - Subjective The patient is a 74 year old M admitted on 11/28/19 22:08. - Objective Height: 5 ft 3 in Weight: 90.7 kg Vital Signs (Past 12hrs): Vital Signs Temp Pulse Pulse Pulse Resp BP Pulse Ox 11/29/19 08:10 83 11/29/19 06:56 36.6 C 78 16 164/72 H 95 11/29/19 03:20 94 11/29/19 03:19 36.7 C 76 20 147/68 H 88 L 11/28/19 22:56 36.9 C 81 20 142/63 H 95 11/28/19 22:16 37.0 C 86 18 146/66 H 93 Lab Results (24hrs): Laboratory Tests (24 Hours) 11/28/19 11/28/19 22:36 22:36 WBC 15.67 H Neut # (Auto) 14.07 H Creatinine 3.22 H Est Cr Clr Drug Dosing 19.7 - Risk Factors for Resistance * None - Assessment & Plan Assessment 74 year old M admitted secondary to CHF, PNA, and JOE on CKD. Patient was a direct admit from [facility]. * Received Ceftriaxone and Azithromycin at [facility]. Both continued upon admission to [facility]. * Chest CT from [facility] shows pulmonary edema as well as RLL and YECENIA infiltrate. * Patient is afebrile. Leukocytosis of 15.6k upon admission. Baseline SCr is 2.0, elevated to 3.22 upon admission. * Spoke with Huyen in Medical Records at [facility]. Had her fax over original cultures which show GPCs growing in anaerobic blood culture. Likely to be identified within the next 24 hours. Could be a contaminant but will continue Vancomycin until GPC is identified given h/o bladder CA and chronic prednisone use. Plan Vancomycin for treatment of bacteremia Vancomycin IV * Estimated PK Parameters: Drake 0.021 hr-1, t1/2 33 hrs * Loading dose: 1750 mg (19.3 mg/kg) * Given extended half-life secondary to JOE, will hold off on maintenance dose at this time. Planning to dose per levels. * Goal trough level: ~ 15 mcg/mL * Random level ordered for 11/29 with AM labs (~ 27 hours post loading dose) Ceftriaxone (pharmacy not consulted) * 2 gm IV every 24 hours - appropriate Azithromycin (pharmacy not consulted) * 500 mg IV every 24 hours - appropriate Pharmacy will continue to follow and will adjust dose/frequency as necessary. Thank you.
--- NOTE | 2019-11-29 09:40 | Nephrology Consultation ---
Date of Consultation November 29, 2019 Assessment & Plan (1) Acute on chronic renal failure: Baseline creatinine 2.3-2.5 April through July 2019. Presenting creatinine at outside facility 2.9 on November 26 with peak creatinine there 3.2. Creatinine 3.2 here on transfer November 27. Concerns for oliguria at outside facility, however no oliguria to date here. Nonoliguric stage I acute kidney injury on chronic kidney disease stage III, stable but with missing data. He had 1 dose of 40 mg Lasix at 730 this morning. stable mild anemia. Mild hyperchloremic acidosis noted >> no need for ABG at this time; monitor; avoid NS No indication for acute dialysis; monitor for need Daily basic metabolic panel ordered; ordered CBC for 11/29 AM <<>> pt w/ hx of mild thrombocytopenia though not this admission did disc with pharmacy to ensure vanco dosed by level -pharmcist to ask primary service to consider unfractionated heparin in lieu of enoxaparin -strongly recommend obtaining blood culture reports from outside facility in order to evaluate agree of suspicion for true bacteremia versus contamination; please also obtain any urine studies that were done at that facility on adm ission Present on Admission?: Yes (2) Volume overload: Agree with gentle diuresis. However will likely lower Lasix dosing depending on follow-up labs today, ordered for 11 AM >> reviewed and improved slightly; will start lasix tid 20 mg IV adn follow closely -Added 1.5 L fluid restriction and low-sodium diet -cont CCB Present on Admission?: Yes (3) Pneumonia: Per primary service Present on Admission?: Yes History of Present Illness Reason for Consultation: Acute on chronic renal failure Requesting Physician: Dr. Granados Attending Physician: Karl Gonzalez DO History of Present Illness 74-year-old male whom I am asked to evaluate for acute on chronic renal insufficiency after he was transferred here from LT[facility] last evening due to concerns about possible need for dialysis. He follows with me in outpatient CKD clinic. Complex past medical history includes coronary artery disease status post angioplasty and 5 vessel stenting [facility] in 2018, peripheral vascular disease status post bilateral lower extremity stenting, essential tremor and significant ambulatory dysfunction with frequent falls complicated by fractures since at least 2017 (follows with Dr. Lujan), hypertension since 2007, polymyalgia rheumatica on chronic daily steroids, sleep apnea on CPAP, bladder cancer diagnosed February 2019 (follows with Dr. Gonsales [facility] physician [facility]) on BCG therapy and history of recurrent urinary retention. He has CKD 3 advanced with baseline creatinine in the 2.3-2.5 range from April through July 2019; also with significant proteinuria, though this is difficult to interpret in the setting of bladder cancer. He presented to [facility] with several weeks of worsening dyspnea, as well as worsening lower extremity edema progressing proximally to his abdomen, worsening weakness and chills, orthopnea, new cough. Admission concern for heart failure as well as pneumonia treated with ceftriaxone and azithromycin. Presenting creatinine per report was 2.9 with potassium 5.3 on November 26. He was apparently on a dopamine drip transiently. Creatinine increased on November 27-3.2 with potassium 5.3, bicarb 18. There was concern for oliguria with an output dropping to approximately 400 cc daily despite Thompson placement. Transfer to [facility] was requested due to concern for possible need for dialysis. I have been following the patient's care peripherally since yesterday and did not believe emergent dialysis was needed overnight did agree with the transfer. On arrival here, patient noted to have right lower lobe and left upper lobe pneumonia as well as blood culture reported at outside facility unclear how many bottles with gram-positive cocci: Vancomycin added to above antibiotic regimen. Arrived on dopamine with thompson. Also with concerns about fluid overload, heart failure, hypoxemic respiratory failure (though overall fluid status reportedly improving somewhat) for which Lasix 40 mg IV twice daily was ordered to start this morning. Presenting creatinine 3.2, presenting potassium 4.7 with chloride 113 and carbon dioxide 18. Also with leukocytosis and hemoglobin 9.0. Allergies Allergy/AdvReac Type Severity Reaction Status Date / Time No Known Allergies Allergy Verified 10/05/19 11:23 Home Medications Home Medications Medication Instructions Recorded Confirmed Type escitalopram oxalate 20 mg tablet 20 mg PO QAM tab 10/25/18 11/28/19 History levothyroxine 100 mcg tablet 100 mcg PO QAM tab 10/25/18 11/28/19 History PreserVision AREDS-2 1 tab PO BID 02/17/19 11/28/19 History aspirin [Aspir-81] 81 mg PO QAM 02/17/19 11/28/19 History cholecalciferol (vitamin D3) 2,000 unit PO QAM 02/17/19 11/28/19 History [Vitamin D3] gabapentin 100 mg capsule 100 mg PO TID 90 Days #270 cap 09/11/19 11/28/19 Rx hydralazine 10 mg tablet 20 mg PO TID tab 09/11/19 11/28/19 History metoprolol tartrate 25 mg tablet 50 mg PO BID tab 09/11/19 11/28/19 History albuterol mcg INHALATION PRN 11/28/19 History amlodipine 10 mg PO BID 11/28/19 11/28/19 History furosemide [Lasix] 40 mg PO Q OTHER DAY 11/28/19 11/28/19 History prednisone 5 mg PO DAILY 11/28/19 11/28/19 History rosuvastatin [Crestor] 40 mg PO DAILY 11/28/19 11/28/19 History Patient History Medical History (Updated 11/29/19 @ 09:55 by Blanca Bianchi MD, PhD) Bladder cancer 03/02 CAD (coronary artery disease) s/p stents x4 total- (1995, 2009); CABG x 5 (10/20/2018) Dyslipidemia Essential tremor Essential tremor vs secondary to chronic steroids per 03/2019 neuro note;on beta mcaky and gabapentin per neurology ([facility]) Glaucoma History of blood transfusion s/p CABG 10/2018 History of stroke remote incidental finding on imaging (years ago) Hypertension Hypothyroidism Inguinal hernia Kidney disease stage III- "going into stage IV" per Dr. Nuno BURNS Macular degeneration b/l with eye injections by Dr. Gilbert Osteoarthritis Peripheral neuropathy likely idiopathic/age related per neurology ([facility]) Peripheral vascular disease Polymyalgia rheumatica on chronic steroids Rotator cuff tear right Sleep apnea non-compliant CPAP Transient ischemic attack (TIA) 05/16/19- testing was negative for stroke at [facility], pt had slurred speech and left facial droop which resolved after a few hours. said it was a TIA that did not show up on scan. Did request records- dx'ed and admitted to [facility] with weakness, mild left facial droop, and ambulatory dysfunction- MRI showed no acute process. No mention of TIA Umbilical hernia Surgical History History of appendectomy History of biopsy of bladder with BCG treatments History of cardiac cath x2- 4 stents total (1995, 2009) History of cataract surgery R&L History of cholecystectomy History of colonoscopy History of endoscopy History of open heart surgery CABG x 5 (10/2018) History of vascular surgery bilateral lower extremities Family History Brother Lymphoma Arthritis COPD (chronic obstructive pulmonary disease) Diabetes Kidney disease Coronary heart disease Heart disease Sister Arthritis Diabetes Parkinson disease Mother , age 85 with a brain tumor. Heart disease Diabetes Father , age 59 of an HI. 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 Safe at Home: Yes Safety Concerns: Feels Safe At This Time Review of Systems Review of Systems: All systems reviewed & are unremarkable except as noted in HPI & below Constitutional: + chills, + fatigue (profound) and + weakness Respiratory: as per Subjective / HPI; no cough and no dyspnea currently no orthopnea Cardiovascular: + edema (improving); no chest pain, no orthopnea (currently) and no palpitations Gastrointestinal: no change in bowel habits and no diarrhea/loose stools Genitourinary: no difficulty urinating Physical Exam Constitutional: well developed and well nourished lying flat on RA nad Eyes: EOM intact bilaterally ENMT: Ears: no external ear abnormality Nose: no external nose abnormality Mouth: + dry oral mucous membranes Neck: no nuchal rigidity Respiratory: normal respiratory effort Auscultation: + diminished lung sounds and + crackles (bibasilar) Gastrointestinal (Abdomen): Inspection/Auscultation: normal bowel sounds Percussion/Palpation: abdomen soft; abdomen nontender Musculoskeletal: Extremities: strength 5/5 throughout Skin: no rashes, warm and dry Neurologic: ramirez, fluent speech, no tremor Psychiatric: Orientation: oriented x 3 Speech: normal rate/rhythm/volume of speech Genitourinary: thompson with ample clear urine Results & Data ([facility]) Vital Signs (Past 12 Hours) Vital Signs Temp Pulse Pulse Pulse Resp BP Pulse Ox 11/29/19 08:10 83 11/29/19 06:56 36.6 C 78 16 164/72 H 95 11/29/19 03:20 94 11/29/19 03:19 36.7 C 76 20 147/68 H 88 L 11/28/19 22:56 36.9 C 81 20 142/63 H 95 11/28/19 22:16 37.0 C 86 18 146/66 H 93 Laboratory Results 11/28/19 22:36 11/28/19 22:36 (1) Acute on chronic renal failure Acute renal failure type: unspecified Chronic kidney disease stage: stage 3 (moderate) Qualified Code(s): N17.9 - Acute kidney failure, unspecified; N18.3 - Chronic kidney disease, stage 3 (moderate) (2) Pneumonia Laterality: bilateral Lung location: unspecified part of lung Pneumonia type: due to unspecified organism Qualified Code(s): J18.9 - Pneumonia, unspecified organism (3) Volume overload Hypervolemia type: other Qualified Code(s): E87.79 - Other fluid overload
[2019-11-29 11:56] LABS: BUN Creatinine Ratio 27.2 (10-20); Calcium 8.2 mg/dl (8.5-10.1); Creatinine Clr Calc Pharmacy 21.8 ml/min; Est GFR (African American) 23.6; Est GFR (Non-African American) 20.3; Potassium 4.4 mmol/L (3.5-5.1)
--- NOTE | 2019-11-29 13:21 | Electrocardiogram Report ---
Test Reason : Blood Pressure : / mmHG Vent. Rate : 084 BPM Atrial Rate : 084 BPM P-R Int : 144 ms QRS Dur : 108 ms QT Int : 410 ms P-R-T Axes : 055 024 085 degrees QTc Int : 484 ms Normal sinus rhythm Prolonged QT Abnormal ECG When compared with ECG of 26-JAN-2016 15:57, No significant change was found Confirmed by Faheem Lynch ([id number]) on 11/29/2019 1:21:12 PM Referred By: Jose Marcum Confirmed By:Faheem Lynch
--- NOTE | 2019-11-29 13:36 | Medical Student Progress Note ---
Date of Service November 29, 2019 Assessment & Plan (1) Pneumonia: Pt has decreased SOB by the afternoon but an appreciable wheeze on auscultation was noted this afternoon. Nasal swab culture showed no MRSA. Vancomycin will be stopped but patient will continue to be on azithromycin and ceftriaxone. Continue to follow blood cultures from [facility] in case antibiotics need to be adjusted. Laterality: bilateral Lung location: unspecified part of lung Pneumonia type: due to unspecified organism Qualified Code(s): J18.9 - Pneumonia, unspecified organism Present on Admission?: Yes (2) Volume overload: Pt showed signs of volume overload as a result of an acute exacerbation of CHF likely secondary to pneumonia. Fluid overload has improved over the course of the day and pt will continue to be monitored for pedal edema and abdominal distension. Continue use of furosemide for treatment and monitor Cr as it pertains to CKD stage III diagnosis. Hypervolemia type: other Qualified Code(s): E87.79 - Other fluid overload Present on Admission?: Yes (3) Acute exacerbation of CHF (congestive heart failure): Pt will continue to be monitored for worsening symptoms of congestive heart failure with volume overload symptoms. Present on Admission?: Yes (4) Depression: Pt noted worsening depression symptoms this morning and stated that despite not seeing a therapist he was open to seeing one. Pt denies suicidal ideation. Monitor changes in mood. Confirm with patient prior to discharge that he still is interested in a mental health referral. Admission and Anticipated Discharge Date Admission Date: November 28, 2019 Supervising Attestation I personally examined the patient and verified all albright points of history and exam, discussed case, and agree with decision making with Kun Pacheco MS2 feeling much better than when he first got admitted at [facility]. breathing feels pretty good overall. edema down. belly at normal degree of distention vitals noted nad heent nc at mmm lungs overall clear faint rales base L no rhocnhi no wheeze good effort no accessory muscles. abd soft mild distention nontender no guarding ext no c/c/e neuro no focal deficits CAP POA - zithromax, rocephin, improving positive blood culture - thus far only 1/2. was given a dose of vanco but this can be held since more than likely contaminant (and pt not septic so if it were to show meaningful growth, abx can be safely restarted, and with GFR vanco likely will stay in circulation for a while) acute diastolic CHF - likely from tachycardia from pneumonia - has been diuresed. on RA. creatinine bump was likely from reaching an endpoint of diuresis for this. CKD (right at border of 3b and 4) - with acute kidney injury on admission - likely was just from diuresis for CHF - now improving. diuretics per nephro, follow Cr DVT proph - heparin SQ Subjective Pt is a 74 y/o male with a history of stage III CKD, polymyalgia rheumatica with chronic steroids, coronary artery disease, and CHF who was admitted from [facility] for CHF exacerbation in the setting of acute pneumonia and worsening JOE. Pt presented to [facility] on 11/27/19 with complaints of weakness; chills; worsening lower limb, upper limb, and abdominal edema that has progressively gotten worse over the course of the past month. Pt had a elevated BNP of 1200 and pulmonary vascular congestion on chest X-ray. CT showed pulmonary edema at RLL and YECENIA. Potassium was elevated to 5.3, creatinine elevated form 2 to 2.9. Pt was started on azithromycin and Rocephin. Pt's urine output went down and creatinine went up. Started on dopamine drip. Blood culture showed gram positive cocci. Pt was transferred to [facility] on 11/28/19 for concern of possible dialysis. On arrival, pt denied SOB, thinks swelling decreased. Pt denied fever, chills, chest pain, SOB, cough, or abdominal pain. Pt had abdominal swelling. EKG showed QT lengthening with normal sinus rhythm. Talking to the pt today, pt says his swelling is the same as it was yesterday. Pt noticed some SOB and wheezing last night/this morning with some minor SOB and wheezing today. Pt states he has lost his appetite but is drinking normal fluids. Review of Systems Review of Systems: GI: Has pain with urination "jail down the shaft" since bladder surgery last year. Pain has not changed. No blood in urine or changes in color. Constitutional: Denies fever, chills. Feels tired Eyes: Denies changes in vision Respiratory: Minor SOB and wheezing Cardiovascular: Additional Comments: Denies chest pain, palpitations, syncope, lightheadedness. Swelling in lower extremities. Gastrointestinal: Denies abdominal pain, constipation, changes in bowel movement but notices abdomen has a lot of pressure and swelling. Integumentary: No new rashes Psychiatric: Feels more depressed recently associated with health conditions. "More down days than up days". Being home with and gardening helps. Denies suicidal ideation. Does not currently see a therapist but is not opposed to seeing a therapist. Physical Exam Constitutional: Fatigued, falls asleep frequently during conversation, no acute distress. Eyes: PERRL Respiratory: No wheeze appreciated in the morning with mild expiratory wheeze bilaterally with minimal localization to YECENIA and RLL. Cardiovascular: Faint systolic ejection murmur with no clicks, rubs, or gallops. RRR. No carotid bruits. Normal capillary refill. Pedal edema 2+ Gastrointestinal (Abdomen): Distended abdomen, positive fluid wave, distant bowel sounds, negative Goss's sign, no pain on palpation on all four quadrants. Distended abdomen was moderately decreased in size by the afternoon. Neurologic: Biceps, brachioradialis triceps, patellar, and Achilles reflexes 1+ bilaterally. Normal tactile sensation on all four extremities. Decreased vibrational sense on lower extremity bilaterally which is slightly worse on the left lower leg. Psychiatric: Orientedx3 Results & Data ([facility]) Vital Signs (Past 12 Hours) Vital Signs Temp Pulse Pulse Resp BP Pulse Ox 11/29/19 08:10 83 11/29/19 06:56 36.6 C 78 16 164/72 H 95 11/29/19 03:20 94 11/29/19 03:19 36.7 C 76 20 147/68 H 88 L
[2019-11-29] MEDS: FUROSEMIDE 20 MG in SYRINGE 0 ML IV SCH ×2 (14:01→21:16)
--- NOTE | 2019-11-29 14:24 | XCELERA ---
[id number]
--- NOTE | 2019-11-29 18:06 | Billing Data ---
Date of Service November 29, 2019 Coding Level of Care Code 37031 Subseq Hosp Care Lvl 3
--- NOTE | 2019-11-29 20:32 | Billing Data ---
Date of Service November 29, 2019 Coding Level of Care Code 17309 Initial Inpt Care Lvl 3
[2019-11-29] MEDS: HEPARIN SOD 5,000 UNIT/0.5 ML VIAL SQ SCH (21:15)
[2019-11-30] MEDS: AZITHROMYCIN 500 MG in DEXTROSE 5% 250 ML IV SCH (01:25)
[2019-11-30] MEDS: LEVOTHYROXINE SODIUM 100 MCG TABLET PO SCH (06:44)
[2019-11-30 08:01] LABS: Basophils # (auto) 0.01 K/uL (0-0.2); Basophils % (auto) 0.1 %; Eosinophils # (auto) 0.24 K/uL (0-0.5); Eosinophils % (auto) 2.2 %; Hematocrit (blood only) 30.1 % (42-52); Hemoglobin 9.3 g/dL (14.0-18.0); Immature Granulocytes # (auto) 0.07 K/uL (0.00-0.02); Immature Granulocytes % (auto) 0.6 %; Lymphocytes # (auto) 1.48 K/uL (1.2-3.4); Lymphocytes % (auto) 13.4 %; Mean Corpuscular Hemoglobin 27.5 pg (25-34); Mean Corpuscular Hgb Conc 30.9 g/dL (32-36); Mean Corpuscular Volume 89.1 fL (80-100); Mean Platelet Volume 10.1 fL (7.4-10.4); Monocytes # (auto) 1.18 K/uL (0.11-0.59); Monocytes % (auto) 10.7 %; Neutrophils # (auto) 8.07 K/uL (1.4-6.5); Platelet Count 145 K/uL (130-400); RDW Coefficient of Variation 16.6 % (11.5-14.5); RDW Standard Deviation 54.1 fL (36.4-46.3); Red Blood Count 3.38 M/uL (4.7-6.1); White Blood Count 11.05 K/uL (4.8-10.8)
[2019-11-30 08:52] LABS: BUN Creatinine Ratio 26.9 (10-20); Calcium 8.5 mg/dl (8.5-10.1); Creatinine Clr Calc Pharmacy 21.3 ml/min; Est GFR (African American) 23.4; Est GFR (Non-African American) 20.2; Potassium 3.7 mmol/L (3.5-5.1)
[2019-11-30] MEDS: HEPARIN SOD 5,000 UNIT/0.5 ML VIAL SQ SCH ×2 (09:44→20:07)
[2019-11-30] MEDS: METOPROLOL TARTRATE 50 MG TAB PO SCH ×2 (09:44→20:09)
[2019-11-30] MEDS: CHOLECALCIFEROL 1,000 UNITS 25 MCG TAB PO SCH (09:45)
[2019-11-30] MEDS: CEROVITE ADV FORMULA TAB PO SCH ×2 (09:45→20:09)
[2019-11-30] MEDS: AMLODIPINE BESYLATE 5 MG TAB PO SCH ×2 (09:45→20:08)
[2019-11-30] MEDS: ROSUVASTATIN CALCIUM 20 MG TAB PO SCH (09:45)
[2019-11-30] MEDS: GABAPENTIN 100 MG CAP PO SCH ×3 (09:46→20:07)
[2019-11-30] MEDS: ESCITALOPRAM OXALATE 20 MG TAB PO SCH (09:46)
[2019-11-30] MEDS: predniSONE 5 MG TAB PO SCH (09:46)
[2019-11-30] MEDS: ASPIRIN 81 MG ECTAB PO SCH (09:46)
[2019-11-30] MEDS: cefTRIAXone SODIUM 2,000 MG in DEXTROSE 5% 50 ML IV SCH (11:05)
--- NOTE | 2019-11-30 13:18 | Med Student Discharge Summary ---
Date of Service November 30, 2019 Admission HPI Per Admitting Provider Tiago Johnson is a 74 year old man with a past medical history significant for CKD III (Followed by Blanca Bianchi of [facility]), CHF history of mild mitral and tricuspid insufficiency, CAD s/p bypass, peripheral arterial disease status post stenting, CHF (No recent echo), anemia (normocytic), and bladder cancer status post resection and BCG treatments presented to [facility] on the night of 11/26 with complaints of weakness, chills, worsening lower limb edema moving all the way up legs and into his abdomen. leg swelling, weakness and chills have been getting progressively worse over the past month, but this last weekend while camping with family he noted that he was also far more weak and only able to go a few steps before needing to stop to catch his breath. He has been sleeping propped up in bed, and has also had a cough. On presentation to ED patient found to have elevated BNP of 1200 and pulmonary vascular congestion on CXR. CT showing pulmonary edema as well as RLL and YECENIA infiltrate, Potassium on admission elevated to 5.3, creatinine was elevated to 2.9 up from baseline around 2. Patient wished to remain at [facility] rather than be transferred to [facility] though hospitalist team was concerned that patient may need nephrology consultation and possible dialysis/UF if patient was unable to diurese. He was started on azithromycin and rocephin watched overnight at [facility] but today decision was made to transfer as patient's urine output went down and creatinine went up. Due to decreased response to diuretics patient was started on a dopamine drip at outside facility to encourage renal perfusion. blood culture showing growth of gram positive cocci from outside facility On arrival to our facility patient reports that he is feeling well, denies shortness of breath at present and thinks that his swelling has gone down quite a bit in his lower extremities. He denies fevers, chills, chest pain shortness of breath, cough, abdominal pain but does endorse abdominal swelling. He is afebrile and oxygenating well on room air rest of vitals WNL. He denies almost every question I ask him about symtoms even before his initial admission due to being a seemingly tough fellow but his redirects him to answer truthfully. Patient denies smoking, only uses occasional alcohol (One beverage every three weeks or so) and does nto use drugs. Full Code Admission Exam (Per Admitting) Constitutional Fatigued, falls asleep frequently during conversation, no acute distress. Eyes PERRL Respiratory No wheeze appreciated in the morning with mild expiratory wheeze bilaterally with minimal localization to YECENIA and RLL. Cardiovascular Faint systolic ejection murmur with no clicks, rubs, or gallops. RRR. No carotid bruits. Normal capillary refill. Pedal edema 2+ Gastrointestinal (Abdomen) Distended abdomen, positive fluid wave, distant bowel sounds, negative Goss's sign, no pain on palpation on all four quadrants. Distended abdomen was moderately decreased in size by the afternoon. Neurologic Biceps, brachioradialis triceps, patellar, and Achilles reflexes 1+ bilaterally. Normal tactile sensation on all four extremities. Decreased vibrational sense on lower extremity bilaterally which is slightly worse on the left lower leg. Psychiatric Orientedx3 Discharge Data Consultations 11/28/19 22:08 Consult Nephrology Routine 11/30/19 09:47 Consult Cardiology Routine PE (11/30/19): Eyes: PERRL Neuro: 1+ reflexes bilaterally Respiratory: slight wheezing present on lower left lobe, less so than yesterday. Cardio: Faint systolic ejection murmur localized to left 2nd intercostal space. 1+/2+ pedal edema Abdominal: loud bowel sounds, no tenderness to palpation in all four quadrants. Negative murphys sign, some distension and minimal fluid wave present. Hospital Course (1) Pneumonia: Yesterday (11/29/19) pt has decreased SOB by the afternoon but an appreciable wheeze on auscultation was noted. Nasal swab culture showed no MRSA. Vancomycin was stopped and patient was continued on azithromycin and ceftriaxone. On 11/30/19 pt no longer had SOB or issues with wheezing. On auscultation, pt had slight wheezing present on lower left lobe, less than yesterday. Pt's respiratory symptoms have subsided and pt will be discharged on azithromycin and cefdinir for 10 days. (2) Volume overload: Yesterday (11/29/19) pt showed signs of volume overload as a result of an acute exacerbation of CHF likely secondary to pneumonia. Fluid overload improved over the course of the day. Today (11/30/19) pt's abdominal distension and pedal edema has improved. Pt has been discharged and will continue usual prescribed furosemide. (3) Depression: Pt was feeling down without suicidal ideation 11/29/19. Today (11/30/19), pt feeling better and is not interested in mental health referral. Discharge Plan Discharge Items Patient Disposition: Home - Self-Care Reason For Visit: ACUTE & CHRONIC RENAL FAILURE Discharge Diagnosis: Pneumonia Activity: Per Instructions section Non-emergency contact: Primary Care Provider Call non-emergency contact if: your symptoms worsen Follow-up/Referrals: Mane Mosquera [Primary Care Provider] - Diet: Low Sodium (2gm) Addtl Attending Provider Instructions: Pneumonia You had come from another hospital with a pneumonia that we are continuing to treat you for. We treated you initially with IV antibiotics, and transitioned you to oral antibiotics to treat this. Your shortness of breath improved while you were here. If you have worsening cough with sputum production, and shortness of breath we will want you to call or come in. You will need to follow up with your PCP in the next couple days. Fluid overload You had fluid that had increased in your legs and abdomen. The fluid may in some part be due to your heart rate going up from your pneumonia. You should continue to improve as your pneumonia improves. Sodium Increased sodium in your diet. It will be important to eat a low sodium diet, with the goal of less than 2,000 mg of sodium. Looking at your food and check the sodium content to ensure you are not taking in too much sodium will be imp ortant. Kidney disease You were found to have elevated markers on showing worsening of your kidney function. This may be in part to the water pill we gave you for your fluid overload. We will want you to follow up with your primary doctor to recheck your kidney function labs in the next few days. Abnormal heart rhythm You were found to have a fast rhythm while you were here in the hospital. This could have been due to not being on your home blood pressure medication that works on your heart. It could also be due to you having sleep apnea. We had cardiology see you. Sleep apnea You were having some severe fatigue, and previously had a sleep study that showed that you have sleep apnea. As we discussed it will be important for you to talk with your primary doctor and work toward using your CPAP machine more frequently. The sleep apnea causes you to be sleepy and could make it more likely to have abnormal rhythms. Pending Studies at Discharge: Yes Stand-Alone Forms: [facility] CHF Dc Instructions, [facility], Smoking Cessation Medications and DC Order Prescriptions: New cefdinir 300 mg capsule 300 mg PO DAILY 4 Days Qty: 4 RF: 0 azithromycin 250 mg tablet 250 mg PO DAILY 2 Days Qty: 2 RF: 0 Continued metoprolol tartrate 25 mg tablet 50 mg PO BID RF: 0 gabapentin 100 mg capsule 100 mg PO TID 90 Days Qty: 270 RF: 1 levothyroxine 100 mcg tablet 100 mcg PO QAM RF: 0 escitalopram oxalate [Lexapro] 20 mg tablet 20 mg PO QAM RF: 0 cholecalciferol (vitamin D3) [Vitamin D3] 2,000 unit Tablet 2,000 unit PO QAM RF: 0 PreserVision AREDS-2 [id number] Capsule 1 tab PO BID RF: 0 aspirin [Aspir-81] 81 mg Tablet,Delayed Release (Dr/Ec) 81 mg PO QAM RF: 0 hydralazine 10 mg tablet 20 mg PO TID RF: 0 prednisone 5 mg Tablet 5 mg PO DAILY RF: 0 amlodipine 10 mg Tablet 10 mg PO BID RF: 0 furosemide [Lasix] 20 mg Tablet 40 mg PO Q OTHER DAY RF: 0 albuterol 90 mcg/actuation Aerosol INHALATION PRN (Reason: Shortness Of Breath Or Wheezing) RF: 0 rosuvastatin [Crestor] 40 mg Tablet 40 mg PO DAILY RF: 0 Discharge Orders: Discharge Order (Routine); Ordered 11/30/19 Ordered By: Gustavo Cantu/Other Patient Handouts: Heart Failure Dc Admission Data Admit Date/Time: 11/28/19 22:08 Attending Provider: Karl Gonzalez Admit Provider: Hebert Gamez Primary Care Provider: Mane Mosquera Other Providers: Blanca Bianchi ; Terrell Granados Other Interventions: Discharge Summary Assessment (RN) Last Done: 11/30/19 16:14 Supervising Attestation I personally examined the patient and verified all albright points of history and exam, discussed case, and agree with decision making with Kun ROBB. feeling better was going to go home but still hadn't voided after thompson out and afraid about having to come back can't drive in dark vitals noted nad heent nc at mmm breathing unlabored no accessory muscles good effort ext no c/c/e neuro no focal deficits CAP POA - zithromax, rocephin, improving, stable for home positive blood culture - 1/2. contaminant urinary retention - prostate related. follow - straight cath prn, hopefully home tomorrow acute diastolic CHF - likely from tachycardia from pneumonia - has been diuresed. on RA. creatinine bump was likely from reaching an endpoint of diuresis for this. breathing stable - reduce to pO lasix CKD (right at border of 3b and 4) - with acute kidney injury on admission - likely was just from diuresis for CHF - now improving. diuretics per nephro, follow Cr DVT proph - heparin SQ
--- NOTE | 2019-11-30 17:17 | Nephrology Progress Note ---
Date of Service November 30, 2019 Assessment & Plan (1) Acute on chronic renal failure: Baseline creatinine 2.3-2.5 April through July 2019. Presenting creatinine at outside facility 2.9 on November 26 with peak creatinine there 3.2. Creatinine 3.2 here on transfer November 27, down to 2.9 yesterday, today. Concerns for oliguria at outside facility, however no oliguria to date here. Nonoliguric stage I acute kidney injury on chronic kidney disease stage III, stable. diuresed well No indication for acute dialysis; monitor for need d/c planning in process > agree with plan to resume OP lasix ->strongly recommend obtaining blood culture reports from outside facility in order to evaluate agree of suspicion for true bacteremia versus contamination; please also obtain any urine studies that were done at that facility on admission >our group will arrange f/u appt w/in 2-4 wks myself or PA (2) Volume overload: Diuresed well; agree w/ resuming OP lasix -At d/c recommend 1.5 L fluid restriction and low-sodium diet -cont CCB (3) Pneumonia: Per primary service Admission and Anticipated Discharge Date Admission Date: November 28, 2019 Subjective seen and evaluated on rounds this AM at 0745 approx. no complaints; eating breakfast; states he feels better, wishes for d/c, believes edema, breathing both improved Review of Systems Review of Systems: All systems reviewed & are unremarkable except as noted in HPI & below Physical Exam Constitutional: well developed, well nourished and cooperative; no acute distr ess lying flat on ra Eyes: EOM intact bilaterally ENMT: Ears: no external ear abnormality Nose: no external nose abnormality Mouth: + dry oral mucous membranes Neck: no nuchal rigidity Respiratory: normal respiratory effort Auscultation: lungs clear to auscultation bilaterally and + diminished lung sounds Gastrointestinal (Abdomen): Inspection/Auscultation: normal bowel sounds P ercussion/Palpation: abdomen soft; abdomen nontender Musculoskeletal: Extremities: strength 5/5 throughout Skin: no rashes, warm and dry Neurologic: ramirez, fluent speech, no tremor; still generalized weakness Psychiatric: Orientation: oriented x 3 Speech: normal rate/rhythm/volume of speech Genitourinary: thompson w/ ample clear urine Results & Data ([facility]) Vital Signs (Past 12 Hours) Vital Signs Temp Pulse Pulse Pulse Resp BP Pulse Ox 11/30/19 16:17 68 11/30/19 16:14 36.6 C 86 62 20 140/74 93 11/30/19 15:19 36.6 C 62 20 158/60 H 93 11/30/19 11:43 36.6 C 63 18 140/74 95 11/30/19 08:15 85 11/30/19 07:07 36.9 C 91 H 18 165/77 H 93 Laboratory Results 11/30/19 07:38 11/30/19 07:38 (1) Acute on chronic renal failure Acute renal failure type: unspecified Chronic kidney disease stage: stage 3 (moderate) Qualified Code(s): N17.9 - Acute kidney failure, unspecified; N18.3 - Chronic kidney disease, stage 3 (moderate) (2) Volume overload Hypervolemia type: other Qualified Code(s): E87.79 - Other fluid overload (3) Pneumonia Pneumonia type: due to unspecified organism Laterality: bilateral Lung locat ion: unspecified part of lung Qualified Code(s): J18.9 - Pneumonia, unspecified organism
--- NOTE | 2019-11-30 19:14 | Billing Data ---
Date of Service November 30, 2019 Coding Level of Care Code 52272 Subseq Hosp Care Lvl 2
[2019-12-01] MEDS: AZITHROMYCIN 500 MG in DEXTROSE 5% 250 ML IV SCH (01:35)
--- NOTE | 2019-12-01 05:35 | Electrocardiogram Report ---
Test Reason : Blood Pressure : / mmHG Vent. Rate : 070 BPM Atrial Rate : 070 BPM P-R Int : 144 ms QRS Dur : 112 ms QT Int : 446 ms P-R-T Axes : 050 013 088 degrees QTc Int : 481 ms Poor data quality, interpretation may be adversely affected Normal sinus rhythm Nonspecific ST abnormality Prolonged QT Abnormal ECG When compared with ECG of 28-Nov-2019 22:15, No significant change Confirmed by Augusto Brandon ([id number]) on 12/01/2019 5:35:28 AM Referred By: Jose Marcum Confirmed By:Augusto Brandon
[2019-12-01] MEDS: LEVOTHYROXINE SODIUM 100 MCG TABLET PO SCH (05:39)
[2019-12-01 06:56] LABS: BUN Creatinine Ratio 26.9 (10-20); Calcium 8.8 mg/dl (8.5-10.1); Creatinine Clr Calc Pharmacy 21.6 ml/min; Est GFR (African American) 23.7; Est GFR (Non-African American) 20.4; Potassium 3.8 mmol/L (3.5-5.1)
[2019-12-01] MEDS: AMLODIPINE BESYLATE 5 MG TAB PO SCH (08:47)
[2019-12-01] MEDS: METOPROLOL TARTRATE 50 MG TAB PO SCH (08:48)
[2019-12-01] MEDS: ROSUVASTATIN CALCIUM 20 MG TAB PO SCH (08:48)
[2019-12-01] MEDS: HEPARIN SOD 5,000 UNIT/0.5 ML VIAL SQ SCH (08:48)
[2019-12-01] MEDS: predniSONE 5 MG TAB PO SCH (08:48)
[2019-12-01] MEDS: CEROVITE ADV FORMULA TAB PO SCH (08:48)
[2019-12-01] MEDS: GABAPENTIN 100 MG CAP PO SCH (08:48)
[2019-12-01] MEDS: ESCITALOPRAM OXALATE 20 MG TAB PO SCH (08:49)
[2019-12-01] MEDS: CHOLECALCIFEROL 1,000 UNITS 25 MCG TAB PO SCH (08:49)
[2019-12-01] MEDS: ASPIRIN 81 MG ECTAB PO SCH (08:49)
[2019-12-01] MEDS ORDERED: FUROSEMIDE 40 MG TAB PO SCH (09:00)
--- NOTE | 2019-12-01 10:36 | Hospitalist Progress Note ---
Date of Service December 01, 2019 Assessment & Plan Admission and Anticipated Discharge Date Admission Date: November 28, 2019 This note is from 11/30/2019 (1) Pneumonia: Pt has decreased SOB by the afternoon but an appreciable wheeze on auscultation was noted this afternoon. Nasal swab culture showed MRSA negative. Vancomycin was stopped but patient will continue to be on azithromycin and ceftriaxone. (2) Volume overload: Pt showed signs of volume overload as a result of an acute exacerbation of CHF likely secondary to pneumonia. Fluid overload has improved over the course of the day and pt will continue to be monitored for pedal edema and abdominal distension. Continue use of furosemide for treatment and monitor Cr as it pertains to CKD stage III diagnosis. (3) Acute exacerbation of CHF (congestive heart failure): Pt will continue to be monitored for worsening symptoms of congestive heart failure with volume overload symptoms. (4) Depression: Pt noted worsening depression symptoms this morning and stated that desp ite not seeing a therapist he was open to seeing one. Pt denies suicidal ideation. Monitor changes in mood. Confirm with patient prior to discharge that he still is interested in a mental health referral. Supervising Physician Co-Signing Physician Notes I personally examined the patient and verified all albright points of history and exam, discussed case, and agree with decision making with Dr Roche. feeling better was going to go home but still hadn't voided after thompson out and afraid about having to come back can't drive in dark vitals noted nad heent nc at mmm breathing unlabored no accessory muscles good effort ext no c/c/e neuro no focal deficits CAP POA - zithromax, rocephin, improving, stable for home positive blood culture - 1/2. contaminant urinary retention - prostate related. follow - straight cath prn, hopefully home tomorrow acute diastolic CHF - likely from tachycardia from pneumonia - has been diuresed. on RA. creatinine bump was likely from reaching an endpoint of diuresis for this. breathing stable - reduce to pO lasix CKD (right at border of 3b and 4) - with acute kidney injury on admission - likely was just from diuresis for CHF - now improving. diuretics per nephro, follow Cr DVT proph - heparin SQ Subjective Pt is a 74 y/o male with a history of stage III CKD, polymyalgia rheumatica with chronic steroids, coronary artery disease, and CHF who was admitted from [facility] for CHF exacerbation in the setting of acute pneumonia and worsening JOE. He is feeling well today. No acute complaints, no questions for me. Review of Systems Review of Systems: Constitutional: denies fever, chills Cardiac: denies chest pain, palpitations Pulm: denies cough, shortness : denies urgency, frequency, pain Physical Exam Physical Exam: Constitutional Fatigued, falls asleep frequently during conversation, no acute distress. Eyes PERRL Respiratory No wheeze appreciated in the morning with mild expiratory wheeze bilaterally with minimal localization to YECENIA and RLL. Cardiovascular Faint systolic ejection murmur with no clicks, rubs, or gallops. RRR. No carotid bruits. Normal capillary refill. Pedal edema 2+ Gastrointestinal (Abdomen) Distended abdomen, positive fluid wave, distant bowel sounds, negative Goss's sign, no pain on palpation on all four quadrants. Distended abdomen was moderately decreased in size by the afternoon. Psychiatric Orientedx3 Results & Data Results & Data ([facility]) Vital Signs (Past 12 Hours) Vital Signs Temp Pulse Resp BP Pulse Ox 12/01/19 07:00 36.8 C 75 20 168/67 H 95 11/30/19 23:19 36.9 C 86 20 158/67 H 96 CBC Results Results Complete Blood Count Results: RBC 3.38 M/uL (4.7-6.1) L 11/30/19 WBC 11.05 K/uL (4.8-10.8) H 11/30/19 Hgb 9.3 g/dL (14.0-18.0) L 11/30/19 Hct 30.1 % (42-52) L 11/30/19 Plt Count 145 K/uL (130-400) 11/30/19 Chemistry (BMP) Results BMP Results: Sodium 143 mmol/L (136-145) 12/01/19 Potassium 3.8 mmol/L (3.5-5.1) 12/01/19 Chloride 115 mmol/L (98-107) H 12/01/19 BUN 77 mg/dl (7-18) H 12/01/19 Creatinine 2.86 mg/dl (0.6-1.4) H 12/01/19 Glucose 87 mg/dl (70-99) 12/01/19 Resident Activity Tracking Resident Involvement: Resident Care Provided Care Provided: Adult [facility]
--- NOTE | 2019-12-01 19:00 | Billing Data ---
Date of Service December 01, 2019 Coding Level of Care Code D/C Day Management <30 mins
--- NOTE | 2019-12-01 20:45 | Discharge Summary ---
Date of Service December 01, 2019 Admission HPI Per Admitting Provider Tiago Johnson is a 74 year old man with a past medical history significant for CKD III (Followed by Blanca Bianchi of [facility]), CHF history of mild mitral and tricuspid insufficiency, CAD s/p bypass, peripheral arterial disease status post stenting, CHF (No recent echo), anemia (normocytic), and bladder cancer status post resection and BCG treatments presented to [facility] on the night of 11/26 with complaints of weakness, chills, worsening lower limb edema moving all the way up legs and into his abdomen. leg swelling, weakness and chills have been getting progressively worse over the past month, but this last weekend while camping with family he noted that he was also far more weak and only able to go a few steps before needing to stop to catch his breath. He has been sleeping propped up in bed, and has also had a cough. On presentation to ED patient found to have elevated BNP of 1200 and pulmonary vascular congestion on CXR. CT showing pulmonary edema as well as RLL and YECENIA infiltrate, Potassium on admission elevated to 5.3, creatinine was elevated to 2.9 up from baseline around 2. Patient wished to remain at [facility] rather than be transferred to [facility] though hospitalist team was concerned that patient may need nephrology consultation and possible dialysis/UF if patient was unable to diurese. He was started on azithromycin and rocephin watched overnight at [facility] but today decision was made to transfer as patient's urine output went down and creatinine went up. Due to decreased response to diuretics patient was started on a dopamine drip at outside facility to encourage renal perfusion. blood culture showing growth of gram positive cocci from outside facility On arrival to our facility patient reports that he is feeling well, denies shortness of breath at present and thinks that his swelling has gone down quite a bit in his lower extremities. He denies fevers, chills, chest pain shortness of breath, cough, abdominal pain but does endorse abdominal swelling. He is afebrile and oxygenating well on room air rest of vitals WNL. He denies almost every question I ask him about symtoms even before his initial admission due to being a seemingly tough fellow but his redirects him to answer truthfully. Patient denies smoking, only uses occasional alcohol (One beverage every three weeks or so) and does nto use drugs. Full Code Principal Diagnosis pneumonia Discharge Exam Neuro: 1+ reflexes bilaterally Respiratory: slight wheezing present on lower left lobe, less so than yesterday. Cardio: Faint systolic ejection murmur localized to left 2nd intercostal space. 1+/2+ pedal edema Abdominal: loud bowel sounds, no tenderness to palpation in all four quadrants. Negative murphys sign, some distension and minimal fluid wave present. (per Karl Pacheco on 11/29) Discharge Data Allergies Allergy/AdvReac Type Severity Reaction Status Date / Time No Known Allergies Allergy Verified 10/05/19 11:23 Consultations 11/28/19 22:08 Consult Nephrology Routine Hospital Course (1) Pneumonia: Patient stayed overnight due to urinary retention after discontinuing Almanza catheter. Patient did well overnight with 1 hr. post void residual of 90cc's. Please see Discharge Summary on 11/29 for full Hospital course. Total Time Total Time Spent Total Time Spent (In Minutes): Discharge Plan Discharge Items Patient Disposition: Home - Self-Care Reason For Visit: ACUTE & CHRONIC RENAL FAILURE Discharge Diagnosis: Pneumonia Activity: Per Instructions section Non-emergency contact: Primary Care Provider Call non-emergency contact if: your symptoms worsen Follow-up/Referrals: Mane Mosquera [Primary Care Provider] - 12/05/19 11:00 am (You have a follow up with Jonh on WednesdayDec 04 at 11:00. Please arrive 15 minutes prior to your appt time. It is important that you keep this appt, if it does not fit yur schedule, please call [phone] to reschedule. ) Diet: Low Sodium (2gm) Addtl Attending Provider Instructions: Pneumonia You had come from another hospital with a pneumonia that we are continuing to treat you for. We treated you initially with IV antibiotics, and transitioned you to oral antibiotics to treat this. Your shortness of breath improved while you were here. If you have worsening cough with sputum production, and shortness of breath we will want you to call or come in. You will need to follow up with your PCP in the next couple days. Fluid overload You had fluid that had increased in your legs and abdomen. The fluid may in some part be due to your heart rate going up from your pneumonia. You should continue to improve as your pneumonia improves. Sodium Increased sodium in your diet. It will be important to eat a low sodium diet, with the goal of less than 2,000 mg of sodium. Looking at your food and check the sodium content to ensure you are not taking in too much sodium will be important. Kidney disease You were found to have elevated markers on showing worsening of your kidney function. This may be in part to the water pill we gave you for your fluid overload. We will want you to follow up with your primary doctor to recheck your kidney function labs in the next few days. Abnormal heart rhythm You were found to have a fast rhythm while you were here in the hospital. This could have been due to not being on your home blood pressure medication that works on your heart. It could also be due to you having sleep apnea. We had cardiology see you. Sleep apnea You were having some severe fatigue, and previously had a sleep study that showed that you have sleep apnea. As we discussed it will be important for you to talk with your primary doctor and work toward using your CPAP machine more frequently. The sleep apnea causes you to be sleepy and could make it more likely to have abnormal rhythms. Pending Studies at Discharge: Yes Stand-Alone Forms: [facility] CHF Dc Instructions, My [facility], Smoking Cessation Medications and DC Order Prescriptions: New cefdinir 300 mg capsule 300 mg PO DAILY 4 Days Qty: 4 RF: 0 azithromycin 250 mg tablet 250 mg PO DAILY 2 Days Qty: 2 RF: 0 Continued metoprolol tartrate 25 mg tablet 50 mg PO BID RF: 0 gabapentin 100 mg capsule 100 mg PO TID 90 Days Qty: 270 RF: 1 levothyroxine 100 mcg tablet 100 mcg PO QAM RF: 0 escitalopram oxalate [Lexapro] 20 mg tablet 20 mg PO QAM RF: 0 cholecalciferol (vitamin D3) [Vitamin D3] 2,000 unit Tablet 2,000 unit PO QAM RF: 0 PreserVision AREDS-2 [id number] Capsule 1 tab PO BID RF: 0 aspirin [Aspir-81] 81 mg Tablet,Delayed Release (Dr/Ec) 81 mg PO QAM RF: 0 hydralazine 10 mg tablet 20 mg PO TID RF: 0 prednisone 5 mg Tablet 5 mg PO DAILY RF: 0 amlodipine 10 mg Tablet 10 mg PO BID RF: 0 furosemide [Lasix] 20 mg Tablet 40 mg PO Q OTHER DAY RF: 0 albuterol 90 mcg/actuation Aerosol INHALATION PRN (Reason: Shortness Of Breath Or Wheezing) RF: 0 rosuvastatin [Crestor] 40 mg Tablet 40 mg PO DAILY RF: 0 Discharge Orders: Discharge Order (Routine); Ordered 12/01/19 Ordered By: Gustavo Cantu/Other Patient Handouts: Heart Failure Dc Admission Data Admit Date/Time: 11/28/19 22:08 Attending Provider: Karl Gonzalez Admit Provider: Hebert Gamez Primary Care Provider: Mane Mosquera Other Providers: Terrell Granados ; Blanca Bianchi Other Interventions: Discharge Summary Assessment (RN) Last Done: 12/01/19 10:44 Resident Activity Tracking Resident Involvement: Resident Care Provided Care Provided: Adult [facility] Medicine CBC Results Results Complete Blood Count Results: RBC 3.38 M/uL (4.7-6.1) L 11/30/19 WBC 11.05 K/uL (4.8-10.8) H 11/30/19 Hgb 9.3 g/dL (14.0-18.0) L 11/30/19 Hct 30.1 % (42-52) L 11/30/19 Plt Count 145 K/uL (130-400) 11/30/19 Chemistry (BMP) Results BMP Results: Sodium 143 mmol/L (136-145) 12/01/19 Potassium 3.8 mmol/L (3.5-5.1) 12/01/19 Chloride 115 mmol/L (98-107) H 12/01/19 BUN 77 mg/dl (7-18) H 12/01/19 Creatinine 2.86 mg/dl (0.6-1.4) H 12/01/19 Glucose 87 mg/dl (70-99) 12/01/19
== END 2019-12-01 12:51 | disposition home or self-care (01) | DRG 193 ==
LOC: 2S 22:08 → SUATTDRO 22:08 → 2N 11-30 21:00